=== PATIENT | female | born 1990 | race Caucasian/White ===

== ENCOUNTER 2018-08-03 12:49 | Emergency (ER) | payer OTHER ==
[2018-08-03 14:02] LABS: Urine Bacteria 20-50 /HPF (<20); Urine Culture Reflex Order REFLEXED; Urine Mucus 2+ /HPF (NONE SEEN)
[2018-08-03 14:03] LABS: Urine Blood TRACE (NEG); Urine Glucose NEGATIVE (NEG); Urine Protein NEGATIVE (NEG); Urine pH 7.5 (5.0-7.0)
--- NOTE | 2018-08-03 15:23 | EDPHYS ---
Physician Documentation [facility] Name: Judy Sandoval Age: 27 yrs Sex: Female : 1990 Arrival Date: 08/03/2018 Time: 12:53 Bed 19 Private MD: ED Physician Juan C Tomlinson HPI: 08/03 15:21 This 27 yrs old Female presents to ER via Ambulatory with complaints of kb Abdominal Pain, 12 Weeks . 15:21 The patient presents with abdominal pain right lower quadrant. Onset: The kb symptoms/episode began/occurred yesterday, and became worse this morning. The symptoms do not radiate. Associated signs and symptoms: none. The symptoms are described as constant. Modifying factors: The symptoms are alleviated by nothing, the symptoms are aggravated by pressure. Severity of pain: At its worst the pain was mild moderate in the emergency department the pain is unchanged. The patient has not experienced similar symptoms in the past. The patient has not recently seen a physician. Pt reports 30 pound dog stepped on her stomach last night and she has been having pain. Concerned because she is 12 weeks . 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 - Social history:: Smoking status: Patient/guardian denies using tobacco. - Ebola Screening: : Patient denies travel to an Ebola-affected area in the 21 days before illness onset. ROS: 15:18 Constitutional: Negative for fever, chills, and weight loss, Cardiovascular: Negative kb for chest pain, palpitations, and edema, Respiratory: Negative for shortness of breath, cough, wheezing, and pleuritic chest pain, Back: Negative for injury and pain, MS/Extremity: Negative for injury and deformity, Skin: Negative for injury, rash, and discoloration, Neuro: Negative for headache, weakness, numbness, tingling, and seizure. 15:18 Abdomen/GI: Positive for abdominal pain, Negative for nausea, vomiting, and diarrhea. Exam: 15:18 Constitutional: This is a well developed, well nourished patient who is awake, alert, kb and in no acute distress. Head/Face: Normocephalic, atraumatic. Chest/axilla: Normal chest wall appearance and motion. Nontender with no deformity. No lesions are appreciated. Cardiovascular: Regular rate and rhythm with a normal S1 and S2. No gallops, murmurs, or rubs. Normal PMI, no JVD. No pulse deficits. Respiratory: Lungs have equal breath sounds bilaterally, clear to auscultation and percussion. No rales, rhonchi or wheezes noted. No increased work of breathing, no retractions or nasal flaring. Abdomen/GI: Soft, non-tender, with normal bowel sounds. No distension or tympany. No guarding or rebound. No evidence of tenderness throughout. Back: No spinal tenderness. No costovertebral tenderness. Full range of motion. Skin: Warm, dry with normal turgor. Normal color with no rashes, no lesions, and no evidence of cellulitis. MS/ Extremity: Pulses equal, no cyanosis. Neurovascular intact. Full, normal range of motion. Neuro: Awake and alert, GCS 15, oriented to person, place, time, and situation. Cranial nerves II-XII grossly intact. Motor strength 5/5 in all extremities. Sensory grossly intact. Cerebellar exam normal. Normal gait. Vital Signs: 13:00 BP 140 / 68; Pulse 83; Resp 18; Temp 98.1; Pulse Ox 99% on R/A; Weight 92.53 kg (R); aj1 Height 5 ft. 4 in. (162.56 cm) (R); 13:00 Body Mass Index 35.02 (92.53 kg, 162.56 cm) aj1 MDM: 13:25 Data reviewed: vital signs, nurses notes. Data interpreted: Pulse oximetry: on room air kb is 99 %. Interpretation: normal. 14:25 Patient medically screened. kb 15:18 Counseling: I had a detailed discussion with the patient and/or guardian regarding: the kb historical points, exam findings, and any diagnostic results supporting the discharge/admit diagnosis, lab results, radiology results, the need for outpatient follow up, an OB/Gyne specialist, to return to the emergency department if symptoms worsen or persist or if there are any questions or concerns that arise at home. 08/03 13:14 Order name: Urine Microscopic Only; Complete Time: 14:03 hb 08/03 13:21 Order name: Urine Dipstick--Ancillary (enter results); Complete Time: 14:04 eb 08/03 13:21 Order name: Urine --Ancillary (enter results); Complete Time: 14:04 eb 08/03 14:04 Order name: Urine Culture [facility] 08/03 14:30 Order name: US OB Limited; Complete Time: 15:27 kb Administered Medications: No medications were administered Disposition: 16:09 Co-signature as Attending Physician, Bianka STANFORD I agree with the assessment kdr and plan of care. Disposition: 08/03/18 15:22 Discharged to Home. Impression: 12 weeks gestation of , Generalized abdominal pain, Urinary tract infection, site not specified. - Condition is Stable. - Discharge Instructions: First Trimester of , Pfxp-mx-Vhng, Urinary Tract Infection, Adult, Kyum-pd-Hryo. - Prescriptions for Macrobid 100 mg Oral Capsule - take 1 capsule by ORAL route every 12 hours for 5 days; 10 capsule. - Medication Reconciliation Form, Thank You Letter, Antibiotic Education, Prescription Opioid Use form. - Follow up: Emergency Department; When: As needed; Reason: Worsening of condition. Follow up: Private Physician; When: 2 - 3 days; Reason: Recheck today's complaints, Continuance of care, Re-evaluation by your physician. Signatures: Dispatcher [employer] [facility] Bianka Vu FNP-C FNP-Ckb Johnson, Angela, RN RN aj1 Juan C Tomlinson MD MD [facility] Adelaida Omalley RN RN Corrections: (The following items were deleted from the chart) 15:41 15:22 08/03/2018 15:22 Discharged to Home. Impression: 12 weeks gestation of ; hb Generalized abdominal pain; Urinary tract infection, site not specified. Condition is Stable. Forms are Medication Reconciliation Form, Thank You Letter, Antibiotic Education, Prescription Opioid Use. Follow up: Emergency Department; When: As needed; Reason: Worsening of condition. Follow up: Private Physician; When: 2 - 3 days; Reason: Recheck today's complaints, Continuance of care, Re-evaluation by your physician. kb
--- NOTE | 2018-08-03 15:23 | RAD REPORT ---
EXAM DESCRIPTION: US - OB Limited - 08/03/2018 3:04 pm CLINICAL HISTORY: , trauma to the abdomen COMPARISON: None. FINDINGS: Limited sonography was performed. Exam was requested to confirm heart tones and to evaluate the adjacent adnexa. A single intrauterine gestation is identified. No measurements were obtained to establish stage. Hear t rate was seen at 157 BPM. No intrauterine mass or hematoma. A 2 centimeter right ovarian cyst is pr esent. Left ovary was not identifiable. No blood, fluid or other adnexal abnormality. IMPRESSION: Single intrauterine gestation with a heart rate of 157 BPM. Approximately 2 centimeter right ovarian cyst. No suspicious finding, blood or fluid in either adnexa .
--- NOTE | 2018-08-03 15:23 | ER ---
Nurse's Notes [facility] Name: Judy Sandoval Age: 27 yrs Sex: Female : 1990 Arrival Date: 08/03/2018 Time: 12:53 Bed 19 Private MD: Diagnosis: 12 weeks gestation of ;Generalized abdominal pain;Urinary tract infection, site not specified Presentation: 08/03 12:58 Presenting complaint: Patient states: "Last night around 9:30 my 30 pound dog jumped on aj1 me and stepped on my stomach and now where she stepped on me its hurting" Patient reports that she is currently 12 weeks , denies any vaginal bleeding. Transition of care: patient was not received from another setting of care. Onset of symptoms was August 02, 2018 at 21:30. Risk Assessment: Do you want to hurt yourself or someone else? Patient reports no desire to harm self or others. Initial Sepsis Screen: Does the patient meet any 2 criteria? No. Patient's initial sepsis screen is negative. Does the patient have a suspected source of infection? No. Patient's initial sepsis screen is negative. Care prior to arrival: None. 12:58 Method Of Arrival: Ambulatory aj1 12:58 Acuity: GRZEGORZ 3 aj1 Triage Assessment: 13:00 General: Appears in no apparent distress. uncomfortable, Behavior is calm, cooperative, aj1 appropriate for age. Pain: Complains of pain in right upper quadrant Pain currently is 6 out of 10 on a pain scale. Neuro: Level of Consciousness is awake, alert, obeys commands. Cardiovascular: Patient's skin is warm and dry. Respiratory: Airway is patent Respiratory effort is even, unlabored, Respiratory pattern is regular, symmetrical. GI: Reports upper abdominal pain. : Denies vaginal bleeding. 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 - Social history:: Smoking status: Patient/guardian denies using tobacco. - Ebola Screening: : Patient denies travel to an Ebola-affected area in the 21 days before illness onset. Screenin:00 Abuse screen: Denies threats or abuse. Denies injuries from another. Nutritional hb screening: No deficits noted. Tuberculosis screening: No symptoms or risk factors identified. Fall Risk None identified. Assessment: 15:00 General: Appears in no apparent distress. comfortable, Behavior is calm, cooperative, em Denies fever. Pain: Complains of pain in abdomen Pain currently is 6 out of 10 on a pain scale. Pain began 1 day ago. Neuro: Level of Consciousness is awake, alert, obeys commands, Oriented to person, place, time, situation. Cardiovascular: Patient's skin is warm and dry. Respiratory: Airway is patent Respiratory effort is even, unlabored, Respiratory pattern is regular, symmetrical. GI: Abdomen is flat, Bowel sounds present X 4 quads. Abd is soft and non tender X 4 quads. : Denies urinary frequency, vaginal bleeding. Derm: Skin is intact, is healthy with good turgor, Skin is pink, warm \\T\\ dry. Musculoskeletal: Range of motion: intact in all extremities. 15:15 Reassessment: I agree with previous assessment. hb Vital Signs: 13:00 BP 140 / 68; Pulse 83; Resp 18; Temp 98.1; Pulse Ox 99% on R/A; Weight 92.53 kg (R); aj1 Height 5 ft. 4 in. (162.56 cm) (R); 13:00 Body Mass Index 35.02 (92.53 kg, 162.56 cm) aj1 ED Course: 12:53 Patient arrived in ED. rg4 12:59 Triage completed. aj1 13:00 Arm band placed on Patient placed in waiting room, Patient notified of wait time. aj1 13:23 Bianka Vu FNP-C is PHCP. kb 13:23 Juan C Tomlinson MD is Attending Physician. kb 14:00 Patient has correct armband on for positive identification. Placed in gown. Bed in low hb position. Call light in reach. Side rails up X 1. 14:37 Chetan Edward LVN is Primary Nurse. em 15:04 US OB Limited In Process Unspecified. EDMS 15:30 No provider procedures requiring assistance completed. IV discontinued, intact, hb bleeding controlled, No redness/swelling at site. Pressure dressing applied. Administered Medications: No medications were administered Outcome: 15:22 Discharge ordered by . ori 15:30 Discharged to home ambulatory. hb 15:30 Condition: stable 15:30 Discharge instructions given to patient, Instructed on discharge instructions, follow up and referral plans. medication usage, Demonstrated understanding of instructions, follow-up care, medications, Prescriptions given X 1. 15:41 Patient left the ED. hb Signatures: Dispatcher [employer] EDBianka Barclay, KVNG-C CUT OFF SAW OPERATOR PIPE BLANKS-Luba Sommer RN RN aj1 Chetan Edward, METALLURGICAL ENGINEERING TEACHER METALLURGICAL ENGINEERING TEACHER Adelaida Mora, RN RN Steffany Hernandez rg4
== END 2018-08-03 15:41 | disposition home or self-care (01) ==
LOC: ER 12:49
DX: O23.41 Unspecified infection of urinary tract in pregnancy, first trimester (principal); Z3A.12 12 weeks gestation of pregnancy
CPT/HCPCS: 76815; 81003; 81015; 81025; 87086; 87088; 99283

== ENCOUNTER 2018-10-12 01:20 | Emergency (ER) | payer OTHER ==
--- OUTSIDE RECORDS SUMMARY | 2018-10-12 01:22 | XMS REPORT ---
:1990 [facility] Organization [facility] Address [address] [place] [address] Dr. [place] [address] [place] [id number] Care Team Providers Name Role Phone Unavailable Unavailable Unavailable Problems This patient has no known problems. Allergies, Adverse Reactions, Alerts This patient has no known allergies or adverse reactions. Medications This patient has no known medications.
[2018-10-12] MEDS ORDERED: BUPIVACAINE 0.25% PF 10 ML VIAL ONE (02:34)
--- NOTE | 2018-10-12 03:33 | ER ---
Nurse's Notes [facility] Name: Judy Sandoval Age: 28 yrs Sex: Female : 1990 Arrival Date: 10/12/2018 Time: 01:21 Bed 17 Private MD: Diagnosis: Cracked tooth Presentation: 10/12 01:37 Presenting complaint: Patient states: toothache since 2 days. Transition of care: cc3 patient was not received from another setting of care. Onset of symptoms was October 09, 2018. Risk Assessment: Do you want to hurt yourself or someone else? Patient reports no desire to harm self or others. Initial Sepsis Screen: Does the patient meet any 2 criteria? No. Patient's initial sepsis screen is negative. Does the patient have a suspected source of infection? No. Patient's initial sepsis screen is negative. Care prior to arrival: None. 01:37 Method Of Arrival: Ambulatory cc3 01:37 Acuity: GRZEGORZ 4 cc3 Triage Assessment: 01:37 General: Appears in no apparent distress. uncomfortable, Behavior is calm, cooperative, cc3 appropriate for age. Pain: Complains of pain in tooth. EENT: Reports pain in tooth. Neuro: Level of Consciousness is awake, alert, obeys commands, Oriented to person, place, time, situation, Appropriate for age. Cardiovascular: Patient's skin is warm and dry. Respiratory: Airway is patent Respiratory effort is even, unlabored, Respiratory pattern is regular, symmetrical. GI: Abdomen is round patient 22 weeks . : No signs and/or symptoms were reported regarding the genitourinary system. Derm: No signs and/or symptoms reported regarding the dermatologic system. Musculoskeletal: Circulation, motion, and sensation intact. Range of motion: intact in all extremities. 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 - Social history:: Smoking status: Patient/guardian denies using tobacco, never smoked. - Ebola Screening: : No symptoms or risks identified at this time. Screenin:37 Abuse screen: Denies threats or abuse. Denies injuries from another. Nutritional cc3 screening: No deficits noted. Tuberculosis screening: No symptoms or risk factors identified. Fall Risk Ambulatory Aid- None/Bed Rest/Nurse Assist (0 pts). Gait- Normal/Bed Rest/Wheelchair (0 pts) Mental Status- Oriented to own ability (0 pts). Assessment: 01:37 General: see triage assessment. cc3 02:18 Reassessment: Patient appears in no apparent distress at this time. Patient and/or cc3 family updated on plan of care and expected duration. Pain level reassessed. Patient is alert, oriented x 3, equal unlabored respirations, skin warm/dry/pink. 03:45 Reassessment: Patient appears in no apparent distress at this time. Patient and/or cc3 family updated on plan of care and expected duration. Pain level reassessed. Patient is alert, oriented x 3, equal unlabored respirations, skin warm/dry/pink. Dr. Wagner discharged home the patient, no prescription given. No IV cannula in situ. Patient left ER vitally stable and ambulatory with her mother. Patient denies pain at this time. Patient states feeling better. Patient states symptoms have improved. Vital Signs: 01:37 BP 128 / 68; Pulse 78; Resp 16; Temp 98.3; Pulse Ox 100% ; Weight 98.43 kg; Height 5 ms ft. 4 in. (162.56 cm); Pain 9/10; 02:15 BP 112 / 81; Pulse 80; Resp 17 S; Pulse Ox 99% on R/A; cc3 03:30 BP 121 / 75; Pulse 80; Resp 17 S; Pulse Ox 99% on R/A; cc3 01:37 Body Mass Index 37.25 (98.43 kg, 162.56 cm) ms ED Course: 01:21 Patient arrived in ED. do 01:35 Caroline Coats is Primary Nurse. cc3 01:37 Arm band placed on right wrist. Patient notified of wait time. cc3 01:37 Patient has correct armband on for positive identification. Bed in low position. Call cc3 light in reach. Side rails up X 1. Pulse ox on. NIBP on. 01:55 Triage completed. cc3 02:17 Dante Wagner MD is Attending Physician. tw4 03:45 No provider procedures requiring assistance completed. Patient did not have IV access cc3 during this emergency room visit. Administered Medications: 02:55 Drug: Marcaine (0.25 %) 5 ml {Note: administered by Dr. Wagner.} Route: Infiltration; cc3 Site: affected area; 03:30 Follow up: Response: No adverse reaction; Pain is decreased cc3 Outcome: 03:32 Discharge ordered by . tyler 03:45 Discharged to home ambulatory, with family. cc3 03:45 Condition: stable 03:45 Discharge instructions given to patient, family, Instructed on discharge instructions, follow up and referral plans. Demonstrated understanding of instructions, follow-up care. 03:48 Patient left the ED. cc3 Signatures: Rossi Landry ms Karol, Dante Méndez MD MD tw4 Caroline Coats cc3
--- NOTE | 2018-10-12 03:33 | EDPHYS ---
Physician Documentation [facility] Name: Judy Sandoval Age: 28 yrs Sex: Female : 1990 Arrival Date: 10/12/2018 Time: 01:21 Bed 17 Private MD: ED Physician Dante Wagner HPI: 10/12 05:57 This 28 yrs old Female presents to ER via Ambulatory with complaints of tw4 Toothache - 21 Wks Preg. 05:57 The patient presents with broken tooth/teeth, pain. The problem is located in the upper tw4 left third molar, lower left third molar and lower left second molar. Onset: The symptoms/episode began/occurred today. Duration: The symptoms are continuous, and are unchanged since they started. Associated signs and symptoms: The patient has no apparent associated signs or symptoms. The patient has not experienced similar symptoms in the past. 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 - Social history:: Smoking status: Patient/guardian denies using tobacco, never smoked. - Ebola Screening: : No symptoms or risks identified at this time. ROS: 05:57 Constitutional: Negative for fever, chills, and weight loss, Eyes: Negative for injury, tw4 pain, redness, and discharge. 05:57 ENT: Positive for Teeth pain Exam: 05:57 Constitutional: This is a well developed, well nourished patient who is awake, alert, tw4 and in no acute distress. Head/Face: Normocephalic, atraumatic. 05:57 ENT: Mouth: Dental exam: fractured teeth are noted, specifically the upper left third molar (#16) and lower left second molar (#18). Vital Signs: 01:37 BP 128 / 68; Pulse 78; Resp 16; Temp 98.3; Pulse Ox 100% ; Weight 98.43 kg; Height 5 ms ft. 4 in. (162.56 cm); Pain 9/10; 02:15 BP 112 / 81; Pulse 80; Resp 17 S; Pulse Ox 99% on R/A; cc3 03:30 BP 121 / 75; Pulse 80; Resp 17 S; Pulse Ox 99% on R/A; cc3 01:37 Body Mass Index 37.25 (98.43 kg, 162.56 cm) ms Procedures: 05:57 Nerve block: (dental) of left inferior alveolar nerve, Medication: Marcaine 0.5%, tw4 Amount: 8 mls were injected, Effect: the patient has resolution of the pain, the patient's symptoms are improved, markedly, Performed by Dante Wagner MD Patient tolerated well. MDM: 02:17 Patient medically screened. tw4 05:57 Data reviewed: vital signs, nurses notes. Data interpreted: densitometer reader: rhythm is tw4 normal sinus rhythm, Pulse oximetry:. Counseling: I had a detailed discussion with the patient and/or guardian regarding: the historical points, exam findings, and any diagnostic results supporting the discharge/admit diagnosis. Administered Medications: 02:55 Drug: Marcaine (0.25 %) 5 ml {Note: administered by Dr. Wagner.} Route: Infiltration; cc3 Site: affected area; 03:30 Follow up: Response: No adverse reaction; Pain is decreased cc3 Disposition: 10/12/18 03:32 Discharged to Home. Impression: Cracked tooth. - Condition is Stable. - Discharge Instructions: Dental Pain, Dental Pain, Dmfl-vz-Vlnm. - Medication Reconciliation Form, Thank You Letter, Antibiotic Education, Prescription Opioid Use form. - Follow up: Private Physician; When: Upon discharge from the Emergency Department; Reason: If symptoms return, Recheck today's complaints, Continuance of care. - Problem is new. - Symptoms have improved. Signatures: Dante Wagner MD MD tw4 Caroline Coats cc3 Corrections: (The following items were deleted from the chart) 03:48 03:32 10/12/2018 03:32 Discharged to Home. Impression: Cracked tooth. Condition is cc3 Stable. Forms are Medication Reconciliation Form, Thank You Letter, Antibiotic Education, Prescription Opioid Use. Follow up: Private Physician; When: Upon discharge from the Emergency Department; Reason: If symptoms return, Recheck today's complaints, Continuance of care. Problem is new. Symptoms have improved. tw4
== END 2018-10-12 03:48 | disposition home or self-care (01) ==
LOC: ER 01:20
DX: K03.81 Cracked tooth (principal); Z3A.21 21 weeks gestation of pregnancy
CPT/HCPCS: 99283

== ENCOUNTER 2020-02-12 22:34 | Emergency (ER) | payer OTHER, SELFPAY ==
--- OUTSIDE RECORDS SUMMARY | 2020-02-12 22:37 | XMS REPORT | Continuity of Care Document ---
:1990 Author Organization [facility] t Address [address] [place] [address] Care Team Providers Name Role Phone Evelia Perry Attending Clinician Mary Anne Abreu MD Attending Clinician Mary Anne Abreu MD Admitting Clinician Problems This patient has no known problems. Allergies, Adverse Reactions, Alerts This patient has no known allergies or adverse reactions. Medications This patient has no known medications. Procedures This patient has no known procedures. Encounters Start End Encounter Admission Attending Care Care Encounter Source Date/Time Date/Time Type Type Clinicians Facility Department ID 2019-03-05 2019-03-05 [facility] [id number] 14:20:23 15:04:39 Mildred C WALL TAPER HELPER [id number] Visit [facility]IONAL [id number] MATERNAL [id number] & CHILD 107 [facility] 2019-02-27 2019-02-27 [facility] [id number] 13:54:35 14:20:28 Mildred C WALL TAPER HELPER [id number] Visit [facility] [id number] MATERNAL [id number] & CHILD 107 [facility] 2019-02-08 2019-02-11 [facility] CARMEL Abreu [id number] 06:25:00 16:28:00 Encounter Lelo BONILLA [id number] [facility] [id number] 2019-02-06 2019-02-06 Telephone [facility] [id number] 00:00:00 00:00:00 Mildred C WALL TAPER HELPER [id number] [facility] [id number] MATERNAL [id number] & CHILD 107 [facility] 2019-02-01 2019-02-01 Routine [facility] [id number] 09:53:12 10:41:34 Mildrde C WALL TAPER HELPER [id number] Visit REGIONAL [id number] MATERNAL [id number] & CHILD 107 [facility] 2019-01-25 2019-01-25 Routine [facility] [id number] 09:27:28 10:24:34 Mildred C WALL TAPER HELPER [id number] Visit REGIONAL [id number] MATERNAL [id number] & CHILD 107 [facility] Results This patient has no known results.
--- NOTE | 2020-02-12 23:04 | ER ---
Nurse's Notes [facility] Name: Judy Sandoval Age: 29 yrs Sex: Female : 1990 Arrival Date: 02/12/2020 Time: 22:39 Bed 26 [facility] MD: Diagnosis: ED Course: 02/11 22:39 Patient arrived in ED. es 23:02 Patient's name was called from ER lobby. No response. Unable to locate patient. Will bb disposition as left without being seen by a provider. Administered Medications: No medications were administered Outcome: 23:03 Patient left the ED. bb Signatures: Magdalena Sheikh Brenda RN RN bb
== END 2020-02-12 23:03 | disposition left against medical advice (07) ==
LOC: ER 22:34
DX: Z02.9 Encounter for administrative examinations, unspecified (principal)

== ENCOUNTER 2020-02-14 10:35 | Inpatient (IN) | payer SELFPAY ==
--- OUTSIDE RECORDS SUMMARY | 2020-02-14 10:37 | XMS REPORT | Continuity of Care Document ---
:1990 Author Organization [facility] t Address [address] [place] [address] Care Team Providers Name Role Phone Evelia [...] Clinicians Facility Department ID 2019-03-05 2019-03-05 [email or web address] [id number] 14:20:23 15:04:39 Mildred C SAFETY OFFICER [id number] Visit REGIONAL [id number] MATERNAL [id number] & CHILD 107 [facility] [[email or web address]] 2019-02-27 2019-02-27 [facility] [id number] 13:54:35 14:20:28 Mildred C SAFETY OFFICER [id number] Visit [facility] [id number] MATERNAL [id number] & CHILD 107 [facility] [[email or web address]] 2019-02-08 2019-02-11 [facility] CARMEL Abreu [id number] 06:25:00 16:28:00 Encounter Lelo BONILLA [id number] [facility] [id number] 2019-02-06 2019-02-06 Telephone [facility] [id number] 00:00:00 00:00:00 Mildred C SAFETY OFFICER [id number] [facility] [id number] MATERNAL [id number] & CHILD 107 [facility] [[email or web address]] 2019-02-01 2019-02-01 Routine [facility] [id number] 09:53:12 10:41:34 Mildred C SAFETY OFFICER [id number] Visit REGIONAL [id number] MATERNAL [id number] & CHILD 107 [facility] [[email or web address]] 2019-01-25 2019-01-25 Routine [facility] [id number] 09:27:28 10:24:34 Mildred C SAFETY OFFICER [id number] Visit REGIONAL [id number] MATERNAL [id number] & CHILD 107 [facility] [[email or web address]] Results This patient has no known results.
[2020-02-14] MEDS ORDERED: ONDANSETRON 4 MG/2 ML VIAL ONE (12:10)
[2020-02-14] MEDS ORDERED: MORPHINE 4 MG/ML SYR ONE ×2 (12:10→14:49)
[2020-02-14 12:11] LABS: Absolute Lymphocytes (CBC) 2.5 K/uL (0.7-4.9); Basophils % 0.3 % (0-1.3); Hematocrit 32.8 % (36.0-45.0); Lymphocytes % 17.1 % (15.3-44.8); MPV 8.2 fL (7.6-11.3); RBC Red Blood Cell Count 4.12 M/uL (3.86-4.86)
[2020-02-14] MEDS ORDERED: NA CHLORIDE 0.9% 250 ML ONE (12:12)
[2020-02-14] MEDS ORDERED: VANCOMYCIN 1 GM/VIAL ONE (12:12)
[2020-02-14] MEDS ORDERED: CEFTRIAXONE/SWI 1gm 1 GM/10 ML SYR ONE (12:13)
[2020-02-14 12:20] LABS: BUN Blood Urea Nitrogen 7 mg/dL (7-18); Bicarbonate 24 mmol/L (21-32); Glucose Level 92 mg/dL (74-106); Potassium 3.8 mmol/L (3.5-5.1); Sodium Level 140 mmol/L (136-145)
[2020-02-14] MEDS ORDERED: NA CHLORIDE 0.9% 500 ML ONE (12:26)
--- NOTE | 2020-02-14 13:29 | RAD REPORT ---
EXAM DESCRIPTION: US - Extremity Nonvascular Limited - 02/14/2020 12:58 pm CLINICAL HISTORY: cellulitis/abscess left lateral chest, ant axillary line Left-sided chest swelling COMPARISON: No comparisons TECHNIQUE: Real-time sonographic evaluation of the area of interest was performed. FINDINGS: Tiny 5 x 5 mm subcutaneous slightly complex lesion is present in the area of interest. Kevin t is could be a small lymph node.
--- NOTE | 2020-02-14 14:49 | EDPHYS ---
Physician Documentation [facility] Name: Judy Sandoval Age: 29 yrs Sex: Female : 1990 Arrival Date: 02/14/2020 Time: 11:00 Bed 5 Private MD: ED Physician Juan C Tomlinson HPI: 02/13 14:49 This 29 yrs old Female presents to ER via Ambulatory with complaints of kdr Abscess. 14:49 The patient presents with an abscess of the left lateral posterior chest, The patient kdr presents with cellulitis of the left lateral posterior chest. Description: erythematous, hot, swollen, tense. Onset: The symptoms/episode began/occurred gradually, 7 day(s) ago. Possible cause(s): unknown. Associated signs and symptoms: Pertinent positives: erythema, fever, nausea, Pertinent negatives: discharge, drainage, foreign body sensation, headache, shortness of breath, vomiting. Modifying factors: the symptoms are alleviated by nothing, the symptoms are aggravated by pressure, squeezing the lesion and expressing the contents, touching. Severity of symptoms: At their worst the symptoms were mild, moderate, just prior to arrival, in the emergency department the symptoms are unchanged. The patient has not experienced similar symptoms in the past. The patient has been recently seen by a physician: The patient has been recently seen at an urgent care, 3 days ago. 14:49 The patient has been on abx for three days. 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 - Social history:: Smoking status: Patient denies any tobacco usage or history of. ROS: 14:49 Constitutional: Negative for fever, chills, and weight loss, Eyes: Negative for injury, kdr pain, redness, and discharge, Neck: Negative for injury, pain, and swelling, Cardiovascular: Negative for chest pain, palpitations, and edema, Respiratory: Negative for shortness of breath, cough, wheezing, and pleuritic chest pain, Abdomen/GI: Negative for abdominal pain, nausea, vomiting, diarrhea, and constipation, Back: Negative for injury and pain, : Negative for injury, bleeding, discharge, and swelling, MS/Extremity: Negative for injury and deformity, Neuro: Negative for headache, weakness, numbness, tingling, and seizure activity. Psych: Negative for depression, anxiety, suicide ideation, homicidal ideation, and hallucinations, Allergy/Immunology: Negative for hives, rash, and allergies, Endocrine: Negative for neck swelling, polydipsia, polyuria, polyphagia, and marked weight changes, Hematologic/Lymphatic: Negative for swollen nodes, abnormal bleeding, and unusual bruising. 14:49 Skin: Positive for abscess, cellulitis, erythema, swelling, of the left lateral posterior chest. Exam: 14:49 Constitutional: This is a well developed, well nourished patient who is awake, alert, kdr and in no acute distress. Head/Face: Normocephalic, atraumatic. Eyes: Pupils equal round and reactive to light, extra-ocular motions intact. Lids and lashes normal. Conjunctiva and sclera are non-icteric and not injected. Cornea within normal limits. Periorbital areas with no swelling, redness, or edema. Neck: Trachea midline, no thyromegaly or masses palpated, and no cervical lymphadenopathy. Supple, full range of motion without nuchal rigidity, or vertebral point tenderness. No Meningismus. Cardiovascular: Regular rate and rhythm with a normal S1 and S2. No gallops, murmurs, or rubs. Normal PMI, no JVD. No pulse deficits. Respiratory: Lungs have equal breath sounds bilaterally, clear to auscultation and percussion. No rales, rhonchi or wheezes noted. No increased work of breathing, no retractions or nasal flaring. Abdomen/GI: Soft, non-tender, with normal bowel sounds. No distension or tympany. No guarding or rebound. No evidence of tenderness throughout. Back: No spinal tenderness. No costovertebral tenderness. Full range of motion. Skin: Warm, dry with normal turgor. Normal color with no rashes, no lesions, and no evidence of cellulitis. MS/ Extremity: Pulses equal, no cyanosis. Neurovascular intact. Full, normal range of motion. Neuro: Awake and alert, GCS 15, oriented to person, place, time, and situation. Cranial nerves II-XII grossly intact. Motor strength 5/5 in all extremities. Sensory grossly intact. Cerebellar exam normal. Normal gait. Psych: Awake, alert, with orientation to person, place and time. Behavior, mood, and affect are within normal limits. 14:49 Chest/axilla: Inspection: abscess, that is small, cellulitis, that is mild, Palpation: tenderness, that is mild, Axilla: are normal, Breasts: are normal. Vital Signs: 11:00 BP 121 / 74; Pulse 105; Resp 16; Temp 98.2; Pulse Ox 99% on R/A; Weight 97.52 kg; hb Height 5 ft. 4 in. (162.56 cm); Pain 10/10; 12:16 BP 105 / 67; Pulse 99; Resp 18; Pulse Ox 99% on R/A; Pain 9/10; em 14:13 BP 109 / 60; Pulse 91; Resp 18; Pulse Ox 99% on R/A; Pain 9/10; em 15:11 BP 105 / 75; Pulse 87; Resp 18; Pulse Ox 99% on R/A; em 11:00 Body Mass Index 36.90 (97.52 kg, 162.56 cm) hb MDM: 14:49 Patient medically screened. kdr 14:49 Data reviewed: vital signs, nurses notes, lab test result(s), radiologic studies. kdr Counseling: I had a detailed discussion with the patient and/or guardian regarding: the historical points, exam findings, and any diagnostic results supporting the discharge/admit diagnosis, lab results, radiology results, the need for further work-up and treatment in the hospital. 02/13 11:36 Order name: CBC with Diff kdr 02/13 11:36 Order name: Chem 7 kdr 02/13 11:36 Order name: Blood Culture Adult (2) kdr 02/13 12:02 Order name: Extrmty Nonvasular Limited kdr Administered Medications: 12:12 Drug: Rocephin - (cefTRIAXone) 1 grams Route: IVPB; Infused Over: 30 mins; Site: left hb antecubital; 13:26 Follow up: Response: No adverse reaction; IV Status: Completed infusion; IV Intake: 10mlem 12:13 Drug: vancoMYCIN 1 grams Route: IVPB; Infused Over: 2 hrs; Site: left antecubital; hb 14:30 Follow up: Response: No adverse reaction; IV Status: Completed infusion; IV Intake: em 250ml 12:13 Drug: Zofran (Ondansetron) 4 mg Route: IVP; Site: left antecubital; hb 13:26 Follow up: Response: No adverse reaction; Marked relief of symptoms; Nausea is decreasedem 12:13 Drug: morphine 4 mg Route: IVP; Site: left antecubital; hb 13:26 Follow up: Response: No adverse reaction; Marked relief of symptoms; Pain is decreased em 12:17 Drug: NS 0.9% 500 ml Route: IV; Rate: bolus; Site: left antecubital; em 13:26 Follow up: IV Status: Completed infusion; IV Intake: 500ml em 14:40 Drug: morphine 4 mg Route: IVP; Site: left antecubital; em 16:08 Follow up: Response: No adverse reaction bp Disposition: 02/14/20 14:49 Hospitalization ordered by Rafael Guzman for Observation. Preliminary diagnosis is Cellulitis of chest wall. - Bed requested for Telemetry/MedSurg (observation). - Status is Observation. bp - Condition is Fair. - Problem is an ongoing problem. - Symptoms are unchanged. Signatures: Dispatcher [employer] EDJuan C Brewster MD MD [facility] Chetan Edward, RN RN Adelaida Omalley RN RN Salty Juarez RN RN bp Botello, Elizabeth eb Corrections: (The following items were deleted from the chart) 15: 14:49 Hospitalization Ordered by Rafael Guzman DO for Observation. Preliminary eb diagnosis is Cellulitis of chest wall. Bed requested for Telemetry/MedSurg (observation). Status is Observation. Condition is Fair. Problem is an ongoing problem. Symptoms are unchanged. kdr 16:28 15:26 02/14/2020 14:49 Hospitalization Ordered by Rafael Guzman DO for Observation. bp Preliminary diagnosis is Cellulitis of chest wall. Bed requested for Telemetry/MedSurg (observation). Status is Observation. Condition is Fair. Problem is an ongoing problem. Symptoms are unchanged. eb
--- NOTE | 2020-02-14 14:49 | ER ---
Nurse's Notes [facility] Name: Judy Sandoval Age: 29 yrs Sex: Female : 1990 Arrival Date: 02/14/2020 Time: 11:00 Bed 5 Private MD: Diagnosis: Cellulitis of chest wall Presentation: 02/13 11:00 Chief complaint: Abscess on left breast x 1 week, on clindamycin and Bactrim day 3. hb Reports worsening pain and fever x 2 days. TMAX 103. Coronavirus screen: At this time, the client does not indicate any symptoms associated with coronavirus-19. Ebola Screen: No symptoms or risks identified at this time. Initial Sepsis Screen: Does the patient meet any 2 criteria? HR > 90 bpm. No. Patient's initial sepsis screen is negative. Risk Assessment: Do you want to hurt yourself or someone else? Patient reports no desire to harm self or others. Onset of symptoms was February 07, 2020. 11:00 Method Of Arrival: Ambulatory hb 11:00 Acuity: GRZEGORZ 3 hb 16:07 Initial Sepsis Screen: Does the patient have a suspected source of infection? Yes: Skin bp breakdown/wound. 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 - Social history:: Smoking status: Patient denies any tobacco usage or history of. Screenin:30 Abuse screen: Denies threats or abuse. Nutritional screening: No deficits noted. em Tuberculosis screening: No symptoms or risk factors identified. Fall Risk None identified. Assessment: 11:30 General: Appears in no apparent distress. comfortable, Behavior is calm, cooperative, em appropriate for age, Reports fever for > 3 days, has been taking Bactrim and clindamycin for 2-3 days now, reports fever of 103. Pain: Complains of pain in left lateral anterior chest Pain currently is 10 out of 10 on a pain scale. Neuro: Level of Consciousness is awake, alert, obeys commands, Oriented to person, place, time, situation, Appropriate for age. Cardiovascular: Capillary refill < 3 seconds Patient's skin is warm and dry. Respiratory: Airway is patent Respiratory effort is even, unlabored, Respiratory pattern is regular, symmetrical. GI: Abdomen is round non-distended. Derm: Wound noted left lateral anterior chest. Musculoskeletal: Capillary refill < 3 seconds, Range of motion: intact in all extremities. 12:27 Reassessment: Patient appears in no apparent distress at this time. wheeled to US via em wheelchair. 13:00 Reassessment: Patient appears in no apparent distress at this time. Patient and/or em family updated on plan of care and expected duration. Pain level reassessed. Patient is alert, oriented x 3, equal unlabored respirations, skin warm/dry/pink. Patient states feeling better. 14:01 Reassessment: Dr. Guzman at bedside. em 14:36 Reassessment: reports pain is coming back, rates pain 9/10, provider notified. em 15:11 Reassessment: Patient appears in no apparent distress at this time. Patient and/or em family updated on plan of care and expected duration. Pain level reassessed. Patient is alert, oriented x 3, equal unlabored respirations, skin warm/dry/pink. 16:04 Reassessment: ADMIT COMPLETE, REPORT TO ROSELYN CHRISTY FOR RM 215. bp Vital Signs: 11:00 BP 121 / 74; Pulse 105; Resp 16; Temp 98.2; Pulse Ox 99% on R/A; Weight 97.52 kg; hb Height 5 ft. 4 in. (162.56 cm); Pain 10/10; 12:16 BP 105 / 67; Pulse 99; Resp 18; Pulse Ox 99% on R/A; Pain 9/10; em 14:13 BP 109 / 60; Pulse 91; Resp 18; Pulse Ox 99% on R/A; Pain 9/10; em 15:11 BP 105 / 75; Pulse 87; Resp 18; Pulse Ox 99% on R/A; em 11:00 Body Mass Index 36.90 (97.52 kg, 162.56 cm) hb ED Course: 10:50 Initial lab(s) drawn, by me, sent to lab. Inserted saline lock: 22 gauge in left em antecubital area, using aseptic technique. Blood collected. 11:00 Patient arrived in ED. hb 11:03 Triage completed. hb 11:03 Arm band placed on. hb 11:28 Chetan Edward, RN is Primary Nurse. em 11:30 Patient has correct armband on for positive identification. Placed in gown. Bed in low em position. Call light in reach. Side rails up X2. Pulse ox on. NIBP on. 11:34 Juan C Tomlinson MD is Attending Physician. kdr 12:58 US Extrmty Nonvasular Limited In Process Unspecified. EDMS 14:48 Rafael Guzman DO is Hospitalizing Provider. kdr 16:05 No provider procedures requiring assistance completed. Patient admitted, IV remains in bp place. Administered Medications: 12:12 Drug: Rocephin - (cefTRIAXone) 1 grams Route: IVPB; Infused Over: 30 mins; Site: left hb antecubital; 13:26 Follow up: Response: No adverse reaction; IV Status: Completed infusion; IV Intake: 10mlem 12:13 Drug: vancoMYCIN 1 grams Route: IVPB; Infused Over: 2 hrs; Site: left antecubital; hb 14:30 Follow up: Response: No adverse reaction; IV Status: Completed infusion; IV Intake: em 250ml 12:13 Drug: Zofran (Ondansetron) 4 mg Route: IVP; Site: left antecubital; hb 13:26 Follow up: Response: No adverse reaction; Marked relief of symptoms; Nausea is decreasedem 12:13 Drug: morphine 4 mg Route: IVP; Site: left antecubital; hb 13:26 Follow up: Response: No adverse reaction; Marked relief of symptoms; Pain is decreased em 12:17 Drug: NS 0.9% 500 ml Route: IV; Rate: bolus; Site: left antecubital; em 13:26 Follow up: IV Status: Completed infusion; IV Intake: 500ml em 14:40 Drug: morphine 4 mg Route: IVP; Site: left antecubital; em 16:08 Follow up: Response: No adverse reaction bp Intake: 13:26 IV: 10ml; Total: 10ml. em 13:26 IV: 500ml; Total: 510ml. em 14:30 IV: 250ml; Total: 760ml. em Outcome: 14:49 Decision to Hospitalize by Provider. kdr 16:06 Admitted to Med/surg accompanied by tech, via stretcher, room 204, with chart, Report bp called to ROSELYN CHRISTY 16:06 Condition: stable 16:06 Instructed on the need for admit. 16:28 Patient left the ED. bp Signatures: Dispatcher [employer] EDMS Tomlinson Juan C, MD MD [facility] Chetan Edward, RN RN em Adelaida Omalley, JAELYN RN Salty Carney RN RN bp Corrections: (The following items were deleted from the chart) 11:03 EKG completed in triage. Results shown to . bryce hector : EKG completed in triage. Results shown to MD. em
--- NOTE | 2020-02-14 15:10 | P.HP ---
Certification for Inpatient Patient admitted to: Observation With expected LOS: <2 Midnights Patient will require the following post-hospital care: None Practitioner: I am a practitioner with admitting privileges, knowledge of patient current condition, hospital course, and medical plan of care. Services: Services provided to patient in accordance with Admission requirements found in Title 42 Section 412.3 of the Code of Federal Regulations Patient History Date of Service: 02/14/20 Primary Care Provider: Dr. Cordova([place]) Reason for admission: Failed outpatient cellulitis History of Present Illness: 29-year-old female with history of attention deficit disorder, depression. Patient presented to the emergency room with worsening cellulitis to the left mid axillary area. Patient reported some erythema to the left mid axillary region several days ago. She noted a blister-like area. She also had was feeling very weak. He she felt this was like an infection to the skin. She went to [place] ER for further evaluation. She was given antibiotic therapy and sent home with Bactrim and clindamycin. Her symptoms that improved. She start to have increasing pain and erythema. She came to the ER for further evaluation. In the ER patient was evaluated. White count 14.8, hemoglobin 10.8. Sodium 140, potassium 3.8. GFR unremarkable. Ultrasound to the left mid axillary region shows a tiny 5 x 5 mm subcutaneous complex lesion likely lymph node. Patient given antibiotics in the emergency room. Patient admitted for further evaluation. When I saw the patient ER, she appeared comfortable. Pain well controlled. Allergies No Known Allergies Allergy (Unverified 10/12/18 00:37) Home medications list reviewed: Yes - Past Medical/Surgical History Diabetic: No -: Attention deficit disorder -: depression Past Surgical History: Patient denies surgical history Psychosocial/ Personal History: Patient lives at home. She single - Family History Family History: Reviewed- Non-Contributory - Social History Smoking Status: Light Tobacco smoker (1-9 cigarettes/day) Counseled patient to stop smoking for: less than 10 minutes Smoking therapy provided: Yes Patient receptive to therapy: Yes Alcohol use: Yes CD- Drugs: No Caffeine use: Yes Place of Residence: Home Review of Systems General: Weakness, As per HPI Eyes: Unremarkable ENT: Unremarkable Respiratory: Unremarkable Cardiovascular: Unremarkable Gastrointestinal: Unremarkable Genitourinary: Unremarkable Musculoskeletal: As per HPI Integumentary: As per HPI Neurological: Unremarkable Lymphatics: Unremarkable Physical Examination - Physical Exam General: Alert, In no apparent distress, Oriented x3, Cooperative HEENT: Atraumatic, Normocephalic, Mucous membr. moist/pink Neck: Supple Respiratory: Clear to auscultation bilaterally, Normal air movement Cardiovascular: Normal pulses, Regular rate/rhythm Gastrointestinal: Normal bowel sounds, No tenderness, No masses, No rebound, No guarding Musculoskeletal: Other (Tenderness, erythema to the left mid axillary region. Cellulitis noted to the region. Blister-like area with exudate noted. No fluctuation of scan.) Integumentary: Other (As above) Neurological: Normal speech, Normal strength at 5/5 x4 extr, Normal tone, Normal affect - Studies Laboratory Data (last 24 hrs) 02/14/20 11:55: Sodium 140, Potassium 3.8, BUN 7, Creatinine 0.54 L, Glucose 92 02/14/20 11:55: WBC 14.8 H, Hgb 10.8 L, Hct 32.8 L, Plt Count 359 Assessment and Plan - Plan Impression: Failed outpatient cellulitis of the left mid axillary chest wall region Anemia likely iron deficient Attention deficit disorder depression Plan: Patient will be admitted for further evaluation and treatment. Will obtain blood and wound cultures. Will continue with vancomycin and cefepime. Patient failed outpatient therapy. Will monitor closely. Will provide medication for pain. Will provide DVT prophylaxis. Will continue to monitor and reassess. If condition worsens will consider surgery evaluation. No indication at this time for surgical intervention. Will review and restart home medication. Will monitor closely. Anticipate improvement over the next 24-48 hr. Possible discharge as early as tomorrow. Discharge Plan: Home Plan to discharge in: 24 Hours - Advance Directives Does patient have a Living Will: No Does patient have a Durable POA for Healthcare: No - Code Status/Comfort Care Code Status Assessed: Yes (Patient is full code) Time Spent Managing Pts Care (In Minutes): 55
[2020-02-14] MEDS ORDERED: TRAMADOL HCL 50 MG TAB PO PRN (16:20)
[2020-02-14] MEDS ORDERED: ACETAMINOPHEN 500 MG TAB PO PRN (16:20)
[2020-02-14] MEDS ORDERED: ONDANSETRON 4 MG/2 ML VIAL IV PRN (16:20)
[2020-02-14 16:49] VITALS: BMI 35.9
[2020-02-14] MEDS: NA CHLORIDE 0.9% 1,000 ML IV SCH (17:42)
[2020-02-14] MEDS: ENOXAPARIN 40 MG/0.4 ML SQ SCH (17:42)
[2020-02-14] MEDS: HYDROCODONE/APAP 7.5/325 MG TAB PO PRN (17:57)
[2020-02-14] MEDS ORDERED: VANCOMYCIN 1.75 GM in NA CHLORIDE 0.9% 500 ML IVPB SCH (18:00)
[2020-02-14] MEDS ORDERED: VANCOMYCIN 750 MG in NA CHLORIDE 0.9% 150 ML IVPB ONE (18:00)
[2020-02-14] MEDS: CEFEPIME/SWI 1gm 10 ML IVP SCH (20:28)
[2020-02-14] MEDS ORDERED: CEFEPIME 1 GM/VIAL IV SCH (21:00)
[2020-02-14] MEDS: MUPIROCIN 2% OINT 22GM TUBE TOP SCH (22:23)
[2020-02-15] MEDS: HYDROCODONE/APAP 7.5/325 MG TAB PO PRN ×3 (02:03→17:17)
[2020-02-15] MEDS: VANCOMYCIN 1.75 GM in NA CHLORIDE 0.9% 500 ML IVPB SCH ×2 (05:36→17:17)
[2020-02-15] MEDS: NA CHLORIDE 0.9% 1,000 ML IV SCH ×3 (05:36→22:06)
[2020-02-15 06:16] LABS: Absolute Lymphocytes (CBC) 2.9 K/uL (0.7-4.9); Basophils % 0.2 % (0-1.3); Lymphocytes % 28.7 % (15.3-44.8); MPV 7.9 fL (7.6-11.3); RBC Red Blood Cell Count 3.41 M/uL (3.86-4.86)
[2020-02-15 06:28] LABS: BUN Blood Urea Nitrogen 5 mg/dL (7-18); Bicarbonate 25 mmol/L (21-32); Glucose Level 187 mg/dL (74-106); Potassium 3.4 mmol/L (3.5-5.1); Sodium Level 140 mmol/L (136-145)
[2020-02-15] MEDS: CEFEPIME/SWI 1gm 10 ML IVP SCH ×2 (08:21→20:29)
[2020-02-15] MEDS: MUPIROCIN 2% OINT 22GM TUBE TOP SCH ×2 (08:22→20:28)
[2020-02-15] MEDS ORDERED: POTASSIUM 25 MEQ EFFERV TAB PO ONE (09:00)
--- NOTE | 2020-02-15 09:57 | P.PN ---
Subjective Date of Service: 02/15/20 Primary Care Provider: Dr. Cordova([place]) Chief Complaint: Failed outpatient cellulitis Subjective: Improving Physical Examination - Vital Signs Temperature: 98.0 F Blood Pressure: 155/66 Pulse: 82 Respirations: 16 Pulse Ox (%): 98 - Physical Exam General: Alert HEENT: Atraumatic Neck: Supple Respiratory: Clear to auscultation bilaterally, Normal air movement Cardiovascular: Normal pulses, Regular rate/rhythm Integumentary: Other (Erythema, tenderness and exudate noted to the left chest wall near the mid axillary area.) - Studies Laboratory Data (last 24 hrs) 02/14/20 11:55: Sodium 140, Potassium 3.8, BUN 7, Creatinine 0.54 L, Glucose 92 02/14/20 11:55: WBC 14.8 H, Hgb 10.8 L, Hct 32.8 L, Plt Count 359 Assessment & Plan Discharge Plan: Home Plan to discharge in: 24 Hours Physician Review Additional Text: Impression: Failed outpatient complex abscess/cellulitis of the left mid axillary chest wall region Anemia likely iron deficient Attention deficit disorder depression Plan: Surgery consulted. Surgery evaluated patient. Surgical intervention required. This will occur tomorrow. Continue IV antibiotic therapy. Provide medication for pain. Continue DVT prophylaxis. Anticipate discharge home tomorrow after surgery. Will continue to monitor closely. Time Spent Managing Pts Care (In Minutes): 55
[2020-02-15 10:46] LABS: Specific Gravity 1.015 (1.005-1.030)
[2020-02-15] MEDS: ENOXAPARIN 40 MG/0.4 ML SQ SCH (11:22)
[2020-02-15] MEDS: PARoxetine HCL 10 MG TAB PO SCH (11:24)
[2020-02-15 12:50] LABS: Ferritin 86.7 ng/mL (8-388)
[2020-02-15] MEDS ORDERED: MORPHINE 2 MG/ML SYR IV ONE ×2 (13:00→21:01)
[2020-02-16] MEDS: VANCOMYCIN 1.75 GM in NA CHLORIDE 0.9% 500 ML IVPB SCH (06:35)
[2020-02-16] MEDS: CEFEPIME/SWI 1gm 10 ML IVP SCH (08:05)
[2020-02-16] MEDS: NA CHLORIDE 0.9% 1,000 ML IV SCH (08:20)
[2020-02-16] MEDS: ENOXAPARIN 40 MG/0.4 ML SQ SCH (09:00)
[2020-02-16] MEDS: MUPIROCIN 2% OINT 22GM TUBE TOP SCH (09:00)
[2020-02-16] MEDS: PARoxetine HCL 10 MG TAB PO SCH (09:00)
[2020-02-16] MEDS ORDERED: PAROXETINE HCL 30 MG PO SCH (09:00)
[2020-02-16] MEDS ORDERED: propofoL 200 MG/20 ML VIAL IV ONE (09:50)
[2020-02-16] MEDS ORDERED: BUPIVACA 0.25%/EPI 0.0005%/PF 30 ML VIAL ONE (09:50)
[2020-02-16] MEDS ORDERED: FENTANYL CITR 100 MCG/2 ML ONE ×2 (09:51→10:22)
[2020-02-16] MEDS ORDERED: LIDOCAINE 2% MPF 5 ML VIAL ONE (09:51)
[2020-02-16] MEDS ORDERED: dexAMETHasone 10 MG/ML VIAL ONE (09:53)
[2020-02-16] MEDS ORDERED: KETOROLAC 30 MG/ML INJ ONE (09:53)
[2020-02-16] MEDS ORDERED: ONDANSETRON 4 MG/2 ML VIAL ONE ×2 (09:53→11:01)
--- NOTE | 2020-02-16 10:25 | P.DS ---
Admission Date: 02/14/20 Discharge Date: 02/16/20 Primary Care Provider: Dr. Cordova([place]) Disposition: ROUTINE DISCHARGE Discharge Condition: GOOD Reason for Admission: Failed outpatient cellulitis Consultations: Surgery-Dr. Nair Procedures: US: FINDINGS: Tiny 5 x 5 mm subcutaneous slightly complex lesion is present in the area of interest. That is could be a small lymph node. Surgery: Irrigation and debridement Medical Problem List: Failed outpatient complex abscess/cellulitis of the left mid axillary chest wall region status post irrigation and debridement Anemia of chronic disease with iron/B12 deficiency Attention deficit disorder depression Brief History of Present Illness: 29-year-old female with history of attention deficit disorder, depression. Patient presented to the emergency room with worsening cellulitis to the left mid axillary area. Patient reported some erythema to the left mid axillary region several days ago. She noted a blister-like area. She also had was feeling very weak. He she felt this was like an infection to the skin. She went to [facility] for further evaluation. She was given antibiotic therapy and sent home with Bactrim and clindamycin. Her symptoms that improved. She start to have increasing pain and erythema. She came to the ER for further evaluation. In the ER patient was evaluated. White count 14.8, hemoglobin 10.8. Sodium 140, potassium 3.8. GFR unremarkable. Ultrasound to the left mid axillary region shows a tiny 5 x 5 mm subcutaneous complex lesion likely lymph node. Patient given antibiotics in the emergency room. Patient admitted for further evaluation. When I saw the patient ER, she appeared comfortable. Pain well controlled. Hospital Course: Patient presented with outpatient complex abscess/cellulitis of the left mid axillary chest wall region. Patient given IV antibiotic therapy with improvement. Surgery was consulted. Surgery recommended intervention. I and D was performed. Patient has done well. At discharge patient will continue with current wound care as recommended by surgery. At discharge she may continue with Augmentin 500 mg 1 pill twice daily and doxycycline 100 mg 1 pill twice daily for 7 days. Patient will continue with Bactroban ointment to the nares, umbilicus once daily. Patient may take ibuprofen 400 mg 3 times a day as needed for pain or Tylenol 500 mg 3 times a day as needed for pain. Recommend follow up with surgery in 1 week to follow up this hospitalization. Patient with anemia likely chronic. Patient found to be iron and B12 deficient. Recommend to continue iron and B12 supplementation. Recommend to recheck lab- CBC, iron, B12 in 4 weeks to monitor her progress. Further adjustment in medication can be done by her PCP. Patient with history of attention deficit disorder and depression. At discharge she will continue with her current medication Paxil 30 mg daily. Vital Signs/Physical Exam: Temp Pulse Resp BP Pulse Ox 97.3 F 84 17 130/83 98 02/16/20 08:00 02/16/20 08:00 02/16/20 08:00 02/16/20 08:00 02/16/20 08:00 General: Alert, In no apparent distress, Oriented x3, Cooperative HEENT: Atraumatic Neck: Supple Cardiovascular: Normal pulses Integumentary: Other (Erythema to the chest wall region improved.) Neurological: Normal speech, Normal strength at 5/5 x4 extr, Normal tone, Normal affect Laboratory Data at Discharge: WBC 10.2 K/uL (4.3-10.9) D 02/15/20 06:05 Hgb 9.1 g/dL (12.0-15.0) L 02/15/20 06:05 Hct 27.0 % (36.0-45.0) L D 02/15/20 06:05 Plt Count 317 K/uL (152-406) 02/15/20 06:05 Sodium 140 mmol/L (136-145) 02/15/20 06:05 Potassium 4.3 mmol/L (3.5-5.1) 02/15/20 16:27 BUN 5 mg/dL (7-18) L 02/15/20 06:05 Creatinine 0.64 mg/dL (0.55-1.3) 02/15/20 06:05 Glucose 187 mg/dL (74-106) H 02/15/20 06:05 Home Medications: PARoxetine HCL [Paroxetine HCl] 30 mg PO DAILY 02/14/20 Amoxicillin/Potassium Clav [Augmentin 500-125 Tablet] 1 each PO BID #14 tablet 02/16/20 Cyanocobalamin (Vitamin B-12) [Vitamin B-12] 1,000 mcg PO DAILY #90 tablet 02/16/20 Doxycycline Hyclate 100 mg PO BID #14 tablet 02/16/20 Ferrous Sulfate [Iron] 325 mg PO DAILY #90 tablet 02/16/20 Mupirocin Oint [Bactroban 2% Ointment*] 1 appl TOP DAILY #1 tube 02/16/20 New Medications: Amoxicillin/Potassium Clav [Augmentin 500-125 Tablet] 1 each PO BID #14 tablet Mupirocin Oint [Bactroban 2% Ointment*] 1 appl TOP DAILY #1 tube Doxycycline Hyclate 100 mg PO BID #14 tablet Ferrous Sulfate [Iron] 325 mg PO DAILY #90 tablet Cyanocobalamin (Vitamin B-12) [Vitamin B-12] 1,000 mcg PO DAILY #90 tablet Patient Discharge Instructions: 1. Follow up with PCP in 1 week to follow up this hospitalization. 2. Patient presented with outpatient complex abscess/cellulitis of the left mid axillary chest wall region. Patient given IV antibiotic therapy with improvement. Surgery was consulted. Surgery recommended intervention. I and D was performed. Patient has done well. At discharge patient will continue with current wound care as recommended by surgery. At discharge she may continue with Augmentin 500 mg 1 pill twice daily and doxycycline 100 mg 1 pill twice daily for 7 days. Patient will continue with Bactroban ointment to the nares, umbilicus once daily. Patient may take ibuprofen 400 mg 3 times a day as needed for pain or Tylenol 500 mg 3 times a day as needed for pain. Recommend follow up with surgery in 1 week to follow up this hospitalization. 3. Patient with anemia likely chronic. Patient found to be iron and B12 deficient. Recommend to continue iron and B12 supplementation. Recommend to recheck lab-CBC, iron, B12 in 4 weeks to monitor her progress. Further adjustment in medication can be done by her PCP. 4. Patient with history of attention deficit disorder and depression. At discharge she will continue with her current medication Paxil 30 mg daily. Diet: AHA Activity: Ad jagdish Time spent managing pt's care (in minutes): 55
--- NOTE | 2020-02-16 10:31 | P.OP ---
Plastics Fitter: NONE,NONE Preoperative diagnosis: LEFT axillary abscess Postoperative diagnosis: LEFT axillary abscess Primary procedure: Excisional Debridement of LEFT axillary abscess Anesthesia: GETA + Local Estimated blood loss: <10cc Specimen: cultures and debridement tissue Findings: multiloculated abscess of LEFT axilla [id number] Complications: None Transferred to: Recovery Room Condition: Good
[2020-02-16] MEDS: HYDROMORPHONE HCL 1 MG/ML INJ ONE ×4 (10:52→11:11)
[2020-02-16] MEDS ORDERED: Ringers Lactate 1,000 ML IV ONE (11:07)
[2020-02-16] MEDS ORDERED: HYDROCODONE/APAP 5/325 MG TAB PO PRN (11:08)
[2020-02-16 11:11] VITALS: O2SAT 94
--- NOTE | 2020-02-16 11:40 | CON ---
Date of Consultation: 02/15/2020 Brief History Of Present Illness: Patient is a 29-year-old female with history of ADHD, po stpartum depression, who comes to the ER with worsening cellulitis and tenderness, pain, and drainage of left axillary area. She had some swelling, redness, which initially started on Monday, which got progressively worse. She noted a blister up and started having significant worsening of the redness , cellulitis, stretching in the axillary area and began to weep some purulent fluid as such came to [facility] emergency room with the above-stated complaints. Her constitutional complaints also include weakn ess and fatigue. She had come to the ER with concern for the area and wanted to have it evaluated. Past Medical History: Significant for ADHD, depression. Past Surgical History: She denies. Allergies: NO KNOWN DRUG ALLERGIES. Home Medications: Included paroxetine. Social History: She denies smoking, alcohol, or recreational drug use. Family History: Reviewed, noncontributory. Smoking History: She smokes only intermittently, 1 to 9 cigarettes a day. Review of Systems: Ten-point review of systems other than HPI, denies. Physical Examination: Vital Signs: At the time of examination, her vital signs were temperature of 105/55, pulse is 80, re spiratory rate 14, temperature 97.1. General: She is awake, alert, oriented. PSYCHIATRIC: She is appropriate, conversive. HEENT: She is normocephalic. Sclerae anicteric. Mucous membranes are moist. Oropharynx clear. Neck: Supple. No JVD. Chest: Normal expansion and excursion. Cardiovascular: Regular rate and rhythm. BREASTS: Focused examination of the left axillary area finds a large area of cellulitis approximatel y 6 to 7 cm in size with tenderness to palpation. Some weeping type abscess material appears to be c oming out. There is no other lymphadenopathy appreciable in the area. However, it is difficult to a scertain as there is thickening of the skin in this area. There is no associated breast pathology on the concomitant ipsilateral breast by visual inspection. A formal breast exam was not completed at this time. The remainder of her skin examination is essentially normal. Extremities: No clubbing, cyanosis, edema. Skin: Warm and dry, otherwise. Laboratory Data: White blood cell count of 14.8, hemoglobin is 10.8, hematocrit of 32.8, her platele t count was 359. Her sodium is 140, potassium 4.3, chloride 109, carbon dioxide 25, BUN is 5, creati nine 0.6, glucose was 187. Lactic acid 1.6 on admission. Urine test was negative. She delcid d an extremity ultrasound performed on 02/13 on the day of admission, which was officially read as ti ny 5 x 5 subcutaneous slightly complex lesion present in the area of interest, could be a small lymph node. Assessment And Plan: This is a 29-year-old female who comes in with a left axillary abscess. 1.IV fluid hydration. 2.Antibiotic coverage. 3.I have explained the risks, benefits, alternatives, incision and drainage. Possible additional de bridement of the left axillary area, including but not limited to bleeding, infection, damage to surr ounding tissues, injury, nerves, need for further operation and procedures, ongoing wound care. Maritza ent agrees to proceed as indicated. Thank you for this interesting consult. MENA/STAN Voice ID: [id number] Report ID: [id number]
--- NOTE | 2020-02-16 12:10 | OP ---
Date of Procedure: 02/16/2020 Surgeon: Timothy Nair MD, Preoperative Diagnosis: Left axillary abscess. Postoperative Diagnosis: Left axillary abscess. Procedure Performed: Excisional debridement of left axillary abscess. Anesthesia: General endotracheal plus local with 0.25% Marcaine with epinephrine. Estimated Blood Loss: Less than 10 cc. Specimen: Cultures and debridement tissue. Findings: Multiloculated abscess of the left axilla, size dimensions approximately 10 cm x 6 cm x 4 cm. Complications: None. Disposition: Transferred to recovery room in good condition. Procedure In Detail: After informed consent was obtained, patient was brought to the operating room, prepped and draped in usual sterile fashion. After adequate anesthesia was achieved, I anesthetized the area of elliptical area of skin, which appeared to be obviously necrotic over the area of the le ft axilla consistent with an abscess underlying. After taking this ellipse of skin out, I dissected down and using a combination of sharp dissection as well as electrocautery down to remove an area of infected tissue. Immediately encountered was an abscess. This was cultured for both aerobic and denisha erobic speciation. I then digitized the tract and found it to be quite large and deep with tracking superiorly, inferiorly to a quite large degree, approximately 10 cm x 6 cm x 4 cm depth. After this was completely unroofed, all tissue was debrided, which was infected. The area was copiously irrigat ed multiple times and dried until completely clear. Hemostasis was achieved with electrocautery. Th e area was irrigated once again, packed with Betadine-soaked Kerlix damp to dry and a sterile dressin g placed over top. Patient tolerated the procedure well without evidence of complication, transferre d in good condition. All counts were correct at the end of the case. MENA/MODL Voice ID: [id number] Report ID: [id number]
[2020-02-16 12:29] VITALS: BP 111/59; TEMP 97.5
[2020-02-16] MEDS: HYDROCODONE/APAP 7.5/325 MG TAB PO PRN (14:31)
[2020-02-16] MEDS ORDERED: VANCOMYCIN 2 GM in NA CHLORIDE 0.9% 500 ML IVPB SCH (18:00)
== END 2020-02-16 15:17 | disposition home or self-care (01) | DRG 572 ==
LOC: ER 10:35 → OBSVTOIN 14:53 → ERHOLD 14:53 → 2ND 16:05
PROVIDERS: ADMIT Family Medicine; ATTEND Family Medicine
PROC: 0JBF0ZZ Excision of Left Upper Arm Subcutaneous Tissue and Fascia, Open Approach (ICD-10-PCS; principal; 2020-02-16 09:30)
DX: L03.112 Cellulitis of left axilla (principal); F17.210 Nicotine dependence, cigarettes, uncomplicated; D50.9 Iron deficiency anemia, unspecified; F98.8 Other specified behavioral and emotional disorders with onset usually occurring in childhood and adolescence; F53.0 Postpartum depression; L02.412 Cutaneous abscess of left axilla
CPT/HCPCS: 36415; 76882; 80048; 80202; 81025; 82607; 82728; 83540; 83605; 84132; 84145; 84466; 85025; 87040; 87070; 87075; 87077; 87186; 87205; 88304; 96365; 96375; 99285; J0692; J0696; J1100; J1170; J1650; J2270; J2405; J2704; J3010; J3370; J7030; J7040; J7050; J7120

== ENCOUNTER 2020-02-25 03:52 | Emergency (ER) | payer SELFPAY ==
--- OUTSIDE RECORDS SUMMARY | 2020-02-25 03:54 | XMS REPORT | Continuity of Care Document ---
:1990 Author Organization [facility] t Address [address] [place] [address] Care Team Providers Name Role Phone Evelia [...] Clinicians Facility Department ID 2019-03-05 2019-03-05 [facility] [id number] 14:20:23 15:04:39 Mildred C BREAKER UP [id number] Visit REGIONAL [id number] MATERNAL [id number] & CHILD 107 [facility] 2019-02-27 2019-02-27 [facility] [id number] 13:54:35 14:20:28 Mildred C BREAKER UP [id number] Visit [facility] [id number] MATERNAL [id number] & CHILD 107 [facility] 2019-02-08 2019-02-11 [facility] CARMEL Abreu [id number] 06:25:00 16:28:00 Encounter Lelo BONILLA [id number] [facility] [id number] 2019-02-06 2019-02-06 Telephone [facility] [id number] 00:00:00 00:00:00 Mildred C BREAKER UP [id number] [facility] [id number] MATERNAL [id number] & CHILD 107 [facility] 2019-02-01 2019-02-01 Routine [facility] [id number] 09:53:12 10:41:34 Mildred C BREAKER UP [id number] Visit REGIONAL [id number] MATERNAL [id number] & CHILD 107 [facility] 2019-01-25 2019-01-25 Routine [facility] [id number] 09:27:28 10:24:34 Mildred C BREAKER UP [id number] Visit REGIONAL [id number] MATERNAL [id number] & CHILD 107 [facility] Results This patient has no known results.
[2020-02-25] MEDS ORDERED: KETOROLAC 30 MG/ML INJ ONE (04:35)
--- NOTE | 2020-02-25 05:01 | EDPHYS ---
Physician Documentation [facility] Name: Judy Sandoval Age: 29 yrs Sex: Female : 1990 Arrival Date: 02/25/2020 Time: 03:55 Bed 15 Private MD: ED Physician Dante Wagner HPI: 02/24 05:05 This 29 yrs old Female presents to ER via Ambulatory with complaints of Post tw4 Surgical Complication/pain. 05:05 Patient presents to ED for recheck of: surgical wound. The affected area is on the . tw4 Progress: The patient reports excellent improvement in the affected area. There has been resolution, improvement, or non-development of any drainage, fever, pain, redness or swelling. 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 - Social history:: Smoking status: Patient reports the use of cigarette tobacco products, denies chronic smoking, but will smoke occasionally. ROS: 05:05 Constitutional: Negative for fever, chills, and weight loss, ENT: Negative for injury, tw4 pain, and discharge, Cardiovascular: Negative for chest pain, palpitations, and edema, Respiratory: Negative for shortness of breath, cough, wheezing, and pleuritic chest pain, Abdomen/GI: Negative for abdominal pain, nausea, vomiting, diarrhea, and constipation. 05:05 Skin: Positive for laceration(s), surgical wound left axilla. Exam: 05:10 Constitutional: This is a well developed, well nourished patient who is awake, alert, tw4 and in no acute distress. Head/Face: Normocephalic, atraumatic. Chest/axilla: Normal chest wall appearance and motion. Nontender with no deformity. No lesions are appreciated. Cardiovascular: Regular rate and rhythm with a normal S1 and S2. No gallops, murmurs, or rubs. Normal PMI, no JVD. No pulse deficits. Respiratory: Lungs have equal breath sounds bilaterally, clear to auscultation and percussion. No rales, rhonchi or wheezes noted. No increased work of breathing, no retractions or nasal flaring. 05:10 Skin: Wound recheck: Unrepaired laceration: no drainage, no erythema, no swelling. Vital Signs: 04:11 BP 126 / 74; Pulse 77; Resp 16; Temp 98.3; Pulse Ox 100% ; Pain 10/10; vc 05:00 BP 113 / 98; Pulse 76; Resp 17; Pulse Ox 100% ; vc MDM: 04:00 Patient medically screened. tw4 05:10 Data reviewed: vital signs, nurses notes. Physician consultation: Timothy Nair MD tw4 regarding patient's condition, outpatient follow-up, discussed that pt's wound was healing well and she required more analgesia as outpatient , and will see patient in office. Special discussion: I discussed with the patient/guardian in detail that at this point there is no indication for admission to the hospital. It is understood, however, that if the symptoms persist or worsen the patient needs to return immediately for re-evaluation. 02/24 04:16 Order name: Labs collected and sent; Complete Time: :21 4 Administered Medications: 04:29 Drug: TORadol 60 mg Route: IM; Site: left ventrogluteal; vc 05:33 Follow up: Response: No adverse reaction; Pain is decreased vc Disposition: 02/25/20 05:01 Discharged to Home. Impression: Encounter for change or removal of surgical wound dressing. - Condition is Stable. - Discharge Instructions: How to Change Your Dressing, How to Change Your Dressing, [id number]. - Prescriptions for Tramadol 50 mg Oral Tablet - take 1 tablet by ORAL route every 8 hours as needed; 12 tablet. - Medication Reconciliation Form, Thank You Letter, Antibiotic Education, Prescription Opioid Use form. - Follow up: Private Physician; When: Upon discharge from the Emergency Department; Reason: Recheck today's complaints, Continuance of care, Re-evaluation by your physician. - Problem is new. - Symptoms have improved. Signatures: Dispatcher [employer] Dante Villela MD MD tw4 Yadira Silvestre RN RN vc Corrections: (The following items were deleted from the chart) 04:21 04:16 IV Saline Lock ordered. tw4 vc 05:34 05:01 02/25/2020 05:01 Discharged to Home. Impression: Encounter for change or removal vc of surgical wound dressing. Condition is Stable. Forms are Medication Reconciliation Form, Thank You Letter, Antibiotic Education, Prescription Opioid Use. Follow up: Private Physician; When: Upon discharge from the Emergency Department; Reason: Recheck today's complaints, Continuance of care, Re-evaluation by your physician. Problem is new. Symptoms have improved. tw4
--- NOTE | 2020-02-25 05:01 | ER ---
Nurse's Notes [facility] Name: Judy Sandoval Age: 29 yrs Sex: Female : 1990 Arrival Date: 02/25/2020 Time: 03:55 Bed 15 Private MD: Diagnosis: Encounter for change or removal of surgical wound dressing Presentation: 02/24 04:11 Chief complaint: Patient states: "I had an I\\T\\D done a little over a week ago by Dr. vc Nair, It is hurting really bad, I called his office today but he can't get me in until Monday. They said if it starts hurting worse to come to the ER.". Coronavirus screen: At this time, the client does not indicate any symptoms associated with coronavirus-19. Ebola Screen: No symptoms or risks identified at this time. Initial Sepsis Screen: Does the patient meet any 2 criteria? No. Patient's initial sepsis screen is negative. Does the patient have a suspected source of infection? Yes: Skin breakdown/wound. Risk Assessment: Do you want to hurt yourself or someone else? Patient reports no desire to harm self or others. Onset of symptoms is unknown. 04:11 Method Of Arrival: Ambulatory vc 04:11 Acuity: GRZEGORZ 4 vc Triage Assessment: 04:16 General: Appears in no apparent distress. uncomfortable, Behavior is calm, cooperative, vc appropriate for age. Pain: Complains of pain in left axilla Pain does not radiate. Pain currently is 10 out of 10 on a pain scale. Quality of pain is described as pressure, Pain began gradually. 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 - Social history:: Smoking status: Patient reports the use of cigarette tobacco products, denies chronic smoking, but will smoke occasionally. Screenin:16 Abuse screen: Denies threats or abuse. Nutritional screening: No deficits noted. vc Tuberculosis screening: No symptoms or risk factors identified. Fall Risk None identified. Assessment: 04:21 General: Appears in no apparent distress. uncomfortable, Behavior is calm, cooperative, vc appropriate for age. Pain: Complains of pain in left axilla Pain does not radiate. Pain currently is 10 out of 10 on a pain scale. Neuro: Level of Consciousness is awake, alert, obeys commands, Oriented to person, place, time, situation, Appropriate for age. Cardiovascular: Capillary refill < 3 seconds Patient's skin is warm and dry. Respiratory: Airway is patent Respiratory effort is even, unlabored, Respiratory pattern is regular, symmetrical. GI: No signs and/or symptoms were reported involving the gastrointestinal system. : No signs and/or symptoms were reported regarding the genitourinary system. Derm: Rash noted that is red. 05:32 Reassessment: Patient appears in no apparent distress at this time. Patient and/or vc family updated on plan of care and expected duration. Pain level reassessed. Patient is alert, oriented x 3, equal unlabored respirations, skin warm/dry/pink. Patient states feeling better. Patient states symptoms have improved. Vital Signs: 04:11 BP 126 / 74; Pulse 77; Resp 16; Temp 98.3; Pulse Ox 100% ; Pain 10/10; vc 05:00 BP 113 / 98; Pulse 76; Resp 17; Pulse Ox 100% ; vc ED Course: 03:55 Patient arrived in ED. bp1 04:00 Dante Wagner MD is Attending Physician. tw4 04:11 Yadira Silvestre, JAELYN is Primary Nurse. vc 04:14 Triage completed. vc 04:17 Arm band placed on. vc 04:20 Patient has correct armband on for positive identification. Placed in gown. Bed in low vc position. Call light in reach. Pulse ox on. NIBP on. 05:33 No provider procedures requiring assistance completed. Patient did not have IV access vc during this emergency room visit. Administered Medications: 04:29 Drug: TORadol 60 mg Route: IM; Site: left ventrogluteal; vc 05:33 Follow up: Response: No adverse reaction; Pain is decreased vc Outcome: 05:01 Discharge ordered by . tw4 05:33 Discharged to home ambulatory. vc 05:33 Condition: good 05:33 Discharge instructions given to patient, Instructed on discharge instructions, follow up and referral plans. medication usage, Demonstrated understanding of instructions, follow-up care, medications, Prescriptions given X 1. 05:34 Patient left the ED. vc Signatures: Dante Wagner MD MD tw4 Yadira Silvestre RN RN vc Judy Wright bp1
[2020-02-29 11:41] VITALS: TEMP 98.3; O2SAT 100
[2020-02-29 11:42] VITALS: BP 113/98
== END 2020-02-25 05:34 | disposition home or self-care (01) ==
LOC: ER 03:52
DX: Z48.01 Encounter for change or removal of surgical wound dressing (principal); F17.210 Nicotine dependence, cigarettes, uncomplicated
CPT/HCPCS: 96372; 99283

== ENCOUNTER 2020-08-09 20:15 | Inpatient (IN) | payer BC, SELFPAY ==
--- OUTSIDE RECORDS SUMMARY | 2020-08-09 20:17 | XMS REPORT | Continuity of Care Document ---
:1990 Author Organization [facility] t Address [address] [place] [address] Care Team Providers Name Role Phone Evelia [...] Clinicians Facility Department ID 2019-03-05 2019-03-05 [facility] [id number] 14:20:23 15:04:39 Mildred C EDUCATION COORDINATOR 350.1.13.10 Visit REGIONAL [id number] MATERNAL [id number] & CHILD 107 [facility] 2019-02-27 2019-02-27 [facility] [id number] 13:54:35 14:20:28 Mildred C EDUCATION COORDINATOR 350.1.13.10 Visit [facility] [id number] MATERNAL [id number] & CHILD 107 [facility] 2019-02-08 2019-02-11 [facility] CARMEL Abreu [id number] 06:25:00 16:28:00 Encounter Lelo BONILLA 350.1.13.10 [facility] [id number] 2019-02-06 2019-02-06 [facility] [id number] 00:00:00 00:00:00 Mildred C EDUCATION COORDINATOR 350.1.13.10 [facility] [id number] MATERNAL [id number] & CHILD 107 [facility] 2019-02-01 2019-02-01 Routine [facility] [id number] 09:53:12 10:41:34 Mildred C EDUCATION COORDINATOR 350.1.13.10 Visit REGIONAL [id number] MATERNAL [id number] & CHILD 107 [facility] 2019-01-25 2019-01-25 Routine [facility] [id number] 09:27:28 10:24:34 Mildred C EDUCATION COORDINATOR 350.1.13.10 Visit REGIONAL [id number] MATERNAL [id number] & CHILD 107 [facility] Results This patient has no known results.
[2020-08-09 21:53] LABS: Absolute Lymphocytes (CBC) 2.9 K/uL (0.7-4.9); Basophils % 0.4 % (0-1.3); Hematocrit 35.9 % (36.0-45.0); Lymphocytes % 33.8 % (15.3-44.8); MPV 8.2 fL (7.6-11.3); RBC Red Blood Cell Count 4.48 M/uL (3.86-4.86)
[2020-08-09] MEDS ORDERED: MORPHINE 4 MG/ML SYR ONE (22:10)
[2020-08-09] MEDS ORDERED: ONDANSETRON 4 MG/2 ML VIAL ONE (22:11)
[2020-08-09 22:20] LABS: ALT/SGPT 21 U/L (12-78); AST/SGOT 14 U/L (15-37); Albumin 3.6 g/dL (3.4-5.0); Alkaline Phosphatase 62 U/L (45-117); BUN Blood Urea Nitrogen 10 mg/dL (7-18); Bicarbonate 26 mmol/L (21-32); Bilirubin Total 0.1 mg/dL (0.2-1.0); Glucose Level 76 mg/dL (74-106); Potassium 4.1 mmol/L (3.5-5.1); Protein, Total 7.9 g/dL (6.4-8.2); Sodium Level 137 mmol/L (136-145)
--- NOTE | 2020-08-09 23:48 | EDPHYS ---
Physician Documentation [facility] Name: Judy Sandoval Age: 29 yrs Sex: Female : 1990 Arrival Date: 08/09/2020 Time: 20:18 Bed 17 Private MD: ED Physician Valdez Ya HPI: 08/09 21:19 This 29 yrs old Female presents to ER via Ambulatory with complaints of Wound jmm Infection, Wound Check. 21:19 The patient or guardian complains of pain, that is acute. Onset: The symptoms/episode jmm began/occurred gradually, 3 day(s) ago. Associated signs and symptoms: Pertinent negatives: fever. This is a 29 year old female with no chronic medical conditions that presents to the ED with complaints of swelling to her neck. An abscess was drained 3 days ago and patient prescribed clindamycin with increased swelling today. . 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 - Social history:: Smoking status: Patient denies any tobacco usage or history of. ROS: 21:19 Constitutional: Negative for fever, chills, and weight loss, Cardiovascular: Negative jmm for chest pain, palpitations, and edema, Respiratory: Negative for shortness of breath, cough, wheezing, and pleuritic chest pain. 21:19 Neck: Positive for swelling. 21:19 All other systems are negative. Exam: 21:19 Constitutional: This is a well developed, well nourished patient who is awake, alert, jmm and in no acute distress. Head/Face: atraumatic. Eyes: EOMI, no conjunctival erythema appreciated ENT: Moist Mucus Membranes 21:19 Chest/axilla: Normal chest wall appearance and motion. Cardiovascular: Regular rate and rhythm. No edema appreciated Respiratory: Normal respirations, no respiratory distress appreciated Abdomen/GI: Non distended, soft Back: Normal ROM 21:19 Neck: swelling and induration noted to the right sub mandibular region. 21:19 Skin: swelling and induration noted to the right submandibular region. 21:19 Neuro: Orientation: is normal, Mentation: is normal, Memory: is normal. Vital Signs: 20:40 BP 150 / 97; Pulse 98; Resp 18; Temp 98.2; Pulse Ox 98% on R/A; Weight 98.43 kg; Height ea 5 ft. 4 in. (162.56 cm); 22:45 BP 127 / 60; Pulse 89; Resp 18; Pulse Ox 98% on R/A; mg2 23:26 BP 106 / 58; Pulse 80; Resp 18; Pulse Ox 98% ; ea 20:40 Body Mass Index 37.25 (98.43 kg, 162.56 cm) ea MDM: 21:19 Patient medically screened. [facility] 23:44 Data reviewed: vital signs, nurses notes. Counseling: I had a detailed discussion with [facility] the patient and/or guardian regarding: the historical points, exam findings, and any diagnostic results supporting the discharge/admit diagnosis, lab results, radiology results, the need for further work-up and treatment in the hospital. ED course: I discussed the patient with Raza spears and Dr. Dao. Will admit to Dr. Gulshan menjivar. . 08/09 21:24 Order name: CBC with Diff; Complete Time: 22:06 [facility] 08/09 21:24 Order name: CMP; Complete Time: 22:23 [facility] 08/09 21:24 Order name: Procalcitonin; Complete Time: 23:41 [facility] 08/09 21:24 Order name: Lactate; Complete Time: 22:34 [facility] 08/09 21:24 Order name: Blood Culture Adult (2) [facility] 08/09 21:54 Order name: Urine --Ancillary (enter results); Complete Time: 23:59 tt3 08/09 21:25 Order name: CT Soft Tissue Neck W/contr; Complete Time: 14:15 [facility] 08/09 21:54 Order name: Urine Dipstick--Ancillary (enter results); Complete Time: 23:59 tt3 08/10 00:53 Order name: Wound Culture la1 08/10 01:08 Order name: SARS-COV-2 RT PCR; Complete Time: 06:10 [facility] 08/09 21:24 Order name: Saline Lock; Complete Time: 21:45 [facility] 08/09 21:24 Order name: Urine Dipstick-Ancillary (obtain specimen); Complete Time: 21:51 [facility] 08/09 21:24 Order name: Urine Test (obtain specimen); Complete Time: 21:51 [facility] Administered Medications: 22:02 Drug: morphine 4 mg {Note: rass 0.} Route: IVP; Site: right antecubital; ea 23:47 Follow up: Response: No adverse reaction; Pain is decreased ea 22:02 Drug: Zofran (Ondansetron) 4 mg Route: IVP; Site: right antecubital; ea 23:48 Follow up: Response: No adverse reaction ea 08/10 00:20 Drug: vancoMYCIN 1 grams Route: IVPB; Infused Over: 2 hrs; Site: right antecubital; ea 00:23 Follow up: IV Status: Infusion continued upon admission ea 00:20 Drug: Decadron - Dexamethasone 10 mg Route: IVP; Site: right antecubital; ea 00:23 Follow up: Response: No adverse reaction ea Disposition: 06:10 Co-signature as Attending Physician, Valdez Ya MD. [email or web address] Disposition: 08/09/20 23:47 Hospitalization ordered by Yaw Avelar for Observation. Preliminary diagnosis are Cellulitis of the Neck, Failed Outpatient Therapy. - Bed requested for Telemetry/MedSurg (observation). - Status is Observation. sv - Condition is Stable. - Problem is new. - Symptoms have improved. Signatures: Dispatcher [employer] [facility] Marguerite Callejas Stephanie, Francisco Godoy RN, PA PA [facility] Susi Craig RN RN cg Antunez, Elena, RN RN ea Holmes, Maurice, MD MD [email or web address] Corrections: (The following items were deleted from the chart) 00:09 08/09 23:51 CORONAVIRUS+MR.LAB.BRZ ordered. [facility] 08/10 00:26 08/09 23:47 Hospitalization Ordered by Yaw Avelar MD for Observation. Preliminary cg diagnosis is Cellulitis of the Neck; Failed Outpatient Therapy. Bed requested for Telemetry/MedSurg (observation). Status is Observation. Condition is Stable. Problem is new. Symptoms have improved. [facility] 08/10 12:19 00:26 08/09/2020 23:47 Hospitalization Ordered by Yaw Avelar MD for Observation. Preliminary diagnosis is Cellulitis of the Neck; Failed Outpatient Therapy. Bed requested for [facility] ER HOLD. Status is Observation. Condition is Stable. Problem is new. Symptoms have improved. cg 13:28 12:19 08/09/2020 23:47 Hospitalization Ordered by Yaw Avelar MD for Observation. sv Preliminary diagnosis is Cellulitis of the Neck; Failed Outpatient Therapy. Bed requested for Telemetry/MedSurg (observation). Status is Observation. Condition is Stable. Problem is new. Symptoms have improved. bd
--- NOTE | 2020-08-09 23:48 | ER ---
Nurse's Notes [facility] Name: Judy Sandoval Age: 29 yrs Sex: Female : 1990 Arrival Date: 08/09/2020 Time: 20:18 Bed 17 Private MD: Diagnosis: Cellulitis of the Neck;Failed Outpatient Therapy Presentation: 08/09 20:40 Chief complaint: Patient states: Reports she had an abscess on her right chin drained ea on Monday at her PCPs office, reports today the area has worsened, reports drainage, swelling, warmth and pain to area. Pt reports taking clindamycin prescribed by pcp. Coronavirus screen: At this time, the client does not indicate any symptoms associated with coronavirus-19. Ebola Screen: No symptoms or risks identified at this time. Initial Sepsis Screen: Does the patient meet any 2 criteria? No. Patient's initial sepsis screen is negative. Does the patient have a suspected source of infection? No. Patient's initial sepsis screen is negative. Risk Assessment: Do you want to hurt yourself or someone else? Patient reports no desire to harm self or others. Onset of symptoms was August 09, 2020. 20:40 Method Of Arrival: Ambulatory ea 20:40 Acuity: GRZEGORZ 3 ea Triage Assessment: 20:44 General: Appears uncomfortable, Behavior is appropriate for age. Pain: Complains of ea pain in right cheek and right mandible. Neuro: Level of Consciousness is awake, alert, obeys commands, Oriented to person, place, time, situation. Respiratory: Airway is patent Respiratory effort is even, unlabored, Respiratory pattern is regular, symmetrical. 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 - Social history:: Smoking status: Patient denies any tobacco usage or history of. Screenin:42 Abuse screen: Denies threats or abuse. Nutritional screening: No deficits noted. ea Tuberculosis screening: No symptoms or risk factors identified. Fall Risk None identified. Assessment: 21:44 General: Appears uncomfortable, Behavior is appropriate for age. Pain: Complains of ea pain in right mandible and right cheek. Neuro: Level of Consciousness is awake, alert, obeys commands, Oriented to person, place, time. Respiratory: Airway is patent Respiratory effort is even, unlabored, Respiratory pattern is regular, symmetrical. Derm: Skin is pink, warm \T\ dry. 22:25 Reassessment: Patient and/or family updated on plan of care and expected duration. Pain ea level reassessed. Patient is alert, oriented x 3, equal unlabored respirations, skin warm/dry/pink. 23:26 Reassessment: Patient and/or family updated on plan of care and expected duration. Pain ea level reassessed. Patient is alert, oriented x 3, equal unlabored respirations, skin warm/dry/pink. Hospitalist at bedside updating pt on plan of care. 08/10 00:22 Reassessment: Patient and/or family updated on plan of care and expected duration. Pain ea level reassessed. Patient is alert, oriented x 3, equal unlabored respirations, skin warm/dry/pink. Pt admitted into ED hold. Vital Signs: 08/09 20:40 BP 150 / 97; Pulse 98; Resp 18; Temp 98.2; Pulse Ox 98% on R/A; Weight 98.43 kg; Height ea 5 ft. 4 in. (162.56 cm); 22:45 BP 127 / 60; Pulse 89; Resp 18; Pulse Ox 98% on R/A; mg2 23:26 BP 106 / 58; Pulse 80; Resp 18; Pulse Ox 98% ; ea 20:40 Body Mass Index 37.25 (98.43 kg, 162.56 cm) ea ED Course: 20:18 Patient arrived in ED. bp1 20:29 Francisco Engel PA is PHCP. jmm 20:29 Valdez Ya MD is Attending Physician. jmm 20:42 Triage completed. ea 20:43 Arm band placed on right wrist. ea 21:14 Fanny Son, RN is Primary Nurse. ea 21:43 Patient has correct armband on for positive identification. Bed in low position. Call ea light in reach. Side rails up X 1. Pulse ox on. NIBP on. 21:43 Inserted saline lock: 20 gauge in right antecubital area, using aseptic technique. ea 22:59 CT Soft Tissue Neck W/contr In Process Unspecified. EDMS 23:46 Yaw Avelar MD is Hospitalizing Provider. jm 02/08 00:21 No provider procedures requiring assistance completed. Patient admitted, IV remains in ea place. Administered Medications: 08/09 22:02 Drug: morphine 4 mg {Note: rass 0.} Route: IVP; Site: right antecubital; ea 23:47 Follow up: Response: No adverse reaction; Pain is decreased ea 22:02 Drug: Zofran (Ondansetron) 4 mg Route: IVP; Site: right antecubital; ea 23:48 Follow up: Response: No adverse reaction ea 08/10 00:20 Drug: vancoMYCIN 1 grams Route: IVPB; Infused Over: 2 hrs; Site: right antecubital; ea 00:23 Follow up: IV Status: Infusion continued upon admission ea 00:20 Drug: Decadron - Dexamethasone 10 mg Route: IVP; Site: right antecubital; ea 00:23 Follow up: Response: No adverse reaction ea Outcome: 08/09 23:47 Decision to Hospitalize by Provider. [facility] 08/10 00:22 Admitted to ER Hold. Please see [facility] for further documentation. ea Condition: stable Instructed on the need for admit, Demonstrated understanding of instructions. 13:28 Patient left the ED. sv Signatures: Dispatcher [employer] Maki Hutchison RN RN sv Mickail, Joel, PA PA Fanny Wadr RN RN ea Gardose, Michele, RN RN mg2 [place], Brittany bp1 Corrections: (The following items were deleted from the chart) 08/09 20:43 20:40 Chief complaint: Patient states: Reports she had an abscess on her right chin ea drained on Monday at her PCPs office, reports today the area has worsened, reports drainage, swelling, warmth and pain to area. ea 23:27 23:26 BP 065 / 8; Pulse 80bpm; Resp 18bpm; Pulse Ox 98%; ea ea
[2020-08-09 23:56] LABS: Urine Blood NEGATIVE (NEG); Urine Glucose NEGATIVE (NEG); Urine Protein NEGATIVE (NEG); Urine Specific Gravity 1.025 (1.005-1.030)
[2020-08-10] MEDS ORDERED: dexAMETHasone 10 MG/ML VIAL ONE ×2 (00:15→08:36)
[2020-08-10] MEDS ORDERED: NA CHLORIDE 0.9% 250 ML ONE ×2 (00:16→02:31)
[2020-08-10] MEDS ORDERED: VANCOMYCIN 1 GM/VIAL ONE ×2 (00:16→02:30)
[2020-08-10] MEDS ORDERED: ACETAMINOPHEN 500 MG TAB PO PRN (00:26)
[2020-08-10] MEDS ORDERED: VANCOMYCIN/NS 1 gm 1 GM/250 ML BAG IVPB SCH (00:26)
[2020-08-10] MEDS ORDERED: ONDANSETRON 4 MG/2 ML VIAL IV PRN (00:26)
[2020-08-10] MEDS ORDERED: HYDROCODONE/APAP 5/325 MG TAB ONE ×3 (00:47→12:59)
[2020-08-10] MEDS: HYDROCODONE/APAP 5/325 MG TAB PO PRN ×4 (00:56→21:06)
--- NOTE | 2020-08-10 00:57 | P.HP ---
Certification for Inpatient Patient admitted to: Inpatient With expected LOS: >2 Midnights Patient will require the following post-hospital care: None Practitioner: I am a practitioner with admitting privileges, knowledge of patient current condition, hospital course, and medical plan of care. Services: Services provided to patient in accordance with Admission requirements found in Title 42 Section 412.3 of the Code of Federal Regulations Patient History Date of Service: 08/10/20 Primary Care Provider: Dr. Stover Reason for admission: Submandibular cellulitis History of Present Illness: 29-year-old otherwise healthy female presents emergency department for swelling of the neck. Patient reports that she had an abscess on her anterior neck wall in the submandibular area that was drained percutaneously by her primary care doctor last week. Patient reports that she has been on clindamycin since Monday but the swelling has gotten worse. Labs unremarkable, physical exam significant for approximately golf ball size area of induration in the right submandibular area, CT shows cellulitis of this area without discrete abscess. The sublingual area is without edema, patient able to speak clearly, tolerating secretions, able to tolerate a normal diet just fine, airway patent at this time. Appears to be cellulitis of the skin structures in the area. Case was discussed an with ENT by the ED provider who offered to see the patient tomorrow in the hospital and this was deemed necessary by the hospitalist team, recommend changing antibiotic from clindamycin to vancomycin as this was likely more skin related. Allergies No Known Allergies Allergy (Verified 02/14/20 17:07) Home Medications: PARoxetine HCL [Paroxetine HCl] 30 mg PO DAILY 02/14/20 Amoxicillin/Potassium Clav [Augmentin 500-125 Tablet] 1 each PO BID #14 tablet 02/16/20 Cyanocobalamin (Vitamin B-12) [Vitamin B-12] 1,000 mcg PO DAILY #90 tablet 02/16/20 Doxycycline Hyclate 100 mg PO BID #14 tablet 02/16/20 Ferrous Sulfate [Iron] 325 mg PO DAILY #90 tablet 02/16/20 Mupirocin Oint [Bactroban 2% Ointment*] 1 appl TOP DAILY #1 tube 02/16/20 Sodium Hypochlorite [Dakin's] 473 ml [facility] SEECOM #1 bottle 02/16/20 - Past Medical/Surgical History Diabetic: No -: Attention deficit disorder -: depression -: None Psychosocial/ Personal History: Patient lives at home. She single - Family History Family History: Reviewed- Non-Contributory - Social History Smoking Status: Never smoker Alcohol use: Yes CD- Drugs: No Caffeine use: Yes Place of Residence: Home Review of Systems 10-point ROS is otherwise unremarkable ENT: As per HPI Physical Examination - Physical Exam General: Alert, In no apparent distress, Oriented x3 HEENT: Atraumatic Neck: Supple, Other (Swelling in the right submandibular area approximately golf ball size of indurated tissue present) Respiratory: Clear to auscultation bilaterally, Normal air movement Cardiovascular: No edema, Normal S1 S2 Capillary refill: <2 Seconds Gastrointestinal: Normal bowel sounds, Soft and benign Musculoskeletal: No contractures, No erythema, No tenderness Integumentary: No significant lesion, No tenderness/swelling, No erythema Neurological: Normal speech, Normal strength at 5/5 x4 extr, Normal tone - Studies Laboratory Data (last 24 hrs) 08/09/20 21:34: Sodium 137, Potassium 4.1, BUN 10, Creatinine 0.65, Glucose 76, Total Bilirubin 0.1 L, AST 14 L, ALT 21, Alkaline Phosphatase 62 08/09/20 21:34: WBC 8.50, Hgb 11.7 L, Hct 35.9 L, Plt Count 332 Assessment and Plan - Plan Assessment Cellulitis of the neck (right submandibular area) failed outpatient therapy Plan Cellulitis of the neck (right submandibular area) failed outpatient therapy: Wound culture obtained, continue with broad-spectrum antibiotics cefepime/vancomycin. 3 doses of Decadron q. 8 H. case was discussed with ENT who will be available for consult as necessary. No abscess identified at this time, continue with medical management. Patient airway pain, tolerating full diet able to handle secretions speaking clearly. DVT prophylaxis Lovenox 40 mg subcutaneous once daily. Clinical improvement suspect in the next 48-72 hr. Discharge Plan: Home Plan to discharge in: 72 Hours - Advance Directives Does patient have a Living Will: No Does patient have a Durable POA for Healthcare: No - Code Status/Comfort Care Code Status Assessed: Yes (Full code) Critical Care: No Time Spent Managing Pts Care (In Minutes): 55
[2020-08-10] MEDS: MELATONIN 5 MG TABLET PO PRN ×2 (01:09→21:07)
[2020-08-10 01:12] VITALS: BMI 37.2
[2020-08-10] MEDS ORDERED: MELATONIN 5 MG TABLET PO ONE (01:14)
[2020-08-10] MEDS ORDERED: VANCOMYCIN 750 MG in NA CHLORIDE 0.9% 150 ML IVPB ONE (02:00)
--- NOTE | 2020-08-10 07:16 | P.PN ---
Date of Service: 08/09/20 I was contacted by the ER staff at approximately 2345 regarding this patient. Understanding she had percutaneous I&D with Dr Corodva for superfical abscess and was taking PO Clindamycin with worsening of facial and upper neck/submandibular swelling. The ER stated there was no finding of abscess on her CT and was requesting advice regarding Abx choice. Per the ER staff, the denition was in fair condition and the infection was thought to originate from the skin. I recommended staph/strep coverage with vanco. As no abscess was noted on her CT, I did not see an indication for surgical consult at this time. She will be admitted to the primary team for IV medical therapy. If the area of infection seems to coalesce into an abscess or if the admitting team feels strongly that a surgical consult is required, they are welcome to contact my office in the morning to formally request a consult.
[2020-08-10] MEDS: dexAMETHasone 10 MG/ML VIAL IV SCH ×2 (08:00→16:29)
[2020-08-10] MEDS ORDERED: ENOXAPARIN 40 MG/0.4 ML SQ ONE (08:36)
[2020-08-10] MEDS ORDERED: CEFEPIME/SWI 1gm 10 ML ONE (08:36)
[2020-08-10] MEDS ORDERED: CEFEPIME 1 GM/VIAL IV SCH (09:00)
[2020-08-10] MEDS: CEFEPIME/SWI 1gm 10 ML IV SCH ×2 (09:00→21:07)
[2020-08-10] MEDS: ENOXAPARIN 40 MG/0.4 ML SQ SCH (09:00)
--- NOTE | 2020-08-10 11:27 | RAD REPORT ---
EXAM DESCRIPTION: CT neck with intravenous contrast CLINICAL HISTORY: 29 years Female neck swelling abscess. TECHNIQUE: Axial CT imaging of the soft tissues of the neck were performed following the administrat ion of intravenous contrast. followed by sagittal and coronal reconstructed images. The CT study is p erformed according to ALARA (as low as reasonably achievable) or ALARA/IMAGE GENTLY, with automatic a djustment of mA and/or kV according to patient size. Performed on: 08/09/2020 at 10:40 PM COMPARISON: None. FINDINGS: The visualized portions of the brain and orbits are normal. There is infiltration of the subcutaneous fat in the submental region with mild thickening of the platysma muscle. No discrete so ft tissue mass lesion or fluid collection is identified. No focal abscess is identified. The oral cavity, oropharynx and nasopharynx are normal. Some portions of the oral cavity and orophary nx are obscured by streak artifact related to the patient's dental hardware. The parapharyngeal fa t planes are preserved. The hypopharynx is unremarkable. The epiglottis and aryepiglottic folds are normal. The vallecula and pyriform sinuses are grossly nor mal. The preepiglottic fat is preserved. The thyroid, cricoid and arytenoid cartilages are normal. The region of the false and true vocal cords is normal as is the anterior commissure. The parotid and submandibular glands are grossly within normal limits. No intrinsic mass lesions are seen. . The carotid sheaths are normal bilaterally. The paranasal sinuses and mastoid air cells are clear. No definite pathologically enlarged lymph nodes are identified. There couple of mildly prominent subm ental lymph nodes. The thyroid gland is normal in size and enhances heterogeneously. There are numerous tiny hypodense n odules within the thyroid gland bilaterally. The thoracic inlet is normal. The superior mediastinum and lung apices are normal. No acute osseous abnormalities are identified. IMPRESSION: 1. Cellulitis in the submental region without evidence of a discrete abscess. 2. Numerous tiny hypodense nodules within the thyroid gland bilaterally. No follow-up imaging is ginna mmended. 3. Otherwise, unremarkable CT scan of the soft tissues of the neck. Electronically signed by: Anne-Marie Abarca DO 08/09/2020 11:12 PM PROFESSOR [employer] Due to temporary technical issues with the PACS/Fluency reporting system, reports are being signed by the in house radiologist without review as a courtesy to ensure prompt reporting. The interpreting r adiologist is fully responsible for the content of the report.
[2020-08-10] MEDS: VANCOMYCIN 1.75 GM in NA CHLORIDE 0.9% 500 ML IVPB SCH (15:11)
[2020-08-10] MEDS: HYDROMORPHONE HCL 1 MG/ML INJ IV PRN (16:31)
[2020-08-11] MEDS: VANCOMYCIN 1.75 GM in NA CHLORIDE 0.9% 500 ML IVPB SCH ×2 (02:04→13:55)
[2020-08-11] MEDS: HYDROCODONE/APAP 5/325 MG TAB PO PRN ×4 (05:16→20:39)
[2020-08-11 06:36] LABS: ALT/SGPT 16 U/L (12-78); AST/SGOT 5 U/L (15-37); Albumin 2.9 g/dL (3.4-5.0); Alkaline Phosphatase 54 U/L (45-117); BUN Blood Urea Nitrogen 6 mg/dL (7-18); Bicarbonate 25 mmol/L (21-32); Glucose Level 117 mg/dL (74-106); Potassium 3.9 mmol/L (3.5-5.1); Protein, Total 6.8 g/dL (6.4-8.2); Sodium Level 141 mmol/L (136-145)
[2020-08-11 06:37] LABS: Bilirubin Total < 0.1 mg/dL (0.2-1.0)
[2020-08-11] MEDS ORDERED: POTASSIUM 25 MEQ EFFERV TAB PO ONE (07:05)
[2020-08-11] MEDS: ENOXAPARIN 40 MG/0.4 ML SQ SCH (10:14)
[2020-08-11] MEDS: CEFEPIME/SWI 1gm 10 ML IV SCH (10:14)
[2020-08-11 11:54] LABS: Absolute Lymphocytes (CBC) 4.1 K/uL (0.7-4.9); Basophils % 0.1 % (0-1.3); Hematocrit 35.8 % (36.0-45.0); Lymphocytes % 31.3 % (15.3-44.8); MPV 8.4 fL (7.6-11.3); RBC Red Blood Cell Count 4.41 M/uL (3.86-4.86)
[2020-08-11] MEDS ORDERED: HYDROCORTISONE SUC 100 MG INJ IV ONE (12:56)
--- NOTE | 2020-08-11 14:18 | P.PN ---
Subjective Date of Service: 08/10/20 Subjective: No new changes, No C/O voiced, Improving Review of Systems 10-point ROS is otherwise unremarkable Physical Examination - Vital Signs Temperature: 97.6 F Blood Pressure: 119/63 Pulse: 80 Respirations: 18 Pulse Ox (%): 96 - Physical Exam General: Alert, In no apparent distress, Oriented x3 Neck: Other (Skin is thickened around the submental region. Some erythema and edema) Respiratory: Clear to auscultation bilaterally, Normal air movement Cardiovascular: Regular rate/rhythm, Normal S1 S2 Gastrointestinal: Normal bowel sounds, Soft and benign, Non-distended, No tenderness Musculoskeletal: No tenderness Neurological: Sensation intact, Cranial nerves 3-12 intact - Studies Medications List Reviewed: Yes Assessment & Plan - Problems (Diagnosis) (1) Cellulitis of submandibular region Current Visit: Yes Status: Acute - Plan 1. Continue with IV antibiotic 2. Continue with local wound care 3. ENT consultation if symptoms worsen 4. Gentle IV hydration 5. Monitor CBC 6. May need to repeat CT scan 7. Pain control 8. GI and DVT prophylaxis Discharge Plan: Home Plan to discharge in: Greater than 2 days - Advance Directives Does patient have a Living Will: No Does patient have a Durable POA for Healthcare: No - Code Status/Comfort Care Code Status Assessed: Yes Code Status: Full Code Critical Care: No Time Spent Managing PTS Care (In Minutes): 35
--- NOTE | 2020-08-11 14:19 | P.PN ---
Subjective Date of Service: 08/11/20 Patient is an cellulitis looks to be more formed. It is fairly hard and concerning for it forming into an abscess. I will repeat the CT imaging study and will also give antibiotic coverage to cover anaerobic. Review of Systems 10-point ROS is otherwise unremarkable Physical Examination - Vital Signs Temperature: 97.6 F Blood Pressure: 119/63 Pulse: 80 Respirations: 18 Pulse Ox (%): 96 - Physical Exam General: Alert, In no apparent distress, Oriented x3 Respiratory: Clear to auscultation bilaterally, Normal air movement Cardiovascular: Regular rate/rhythm, Normal S1 S2 Gastrointestinal: Normal bowel sounds, Soft and benign, Non-distended, No tenderness Musculoskeletal: No clubbing, No swelling, No tenderness - Studies Medications List Reviewed: Yes Assessment & Plan - Problems (Diagnosis) (1) Cellulitis of submandibular region Current Visit: Yes Status: Acute - Plan Plan of care as mentioned below 1. Continue with IV antibiotic 2. Continue with local wound care 3. ENT consultation if symptoms worsen 4. Gentle IV hydration 5. Monitor CBC 6. Repeat CT imaging in the morning; if abscess formation then will notify ENT 7. Pain control 8. GI and DVT prophylaxis - Advance Directives Does patient have a Living Will: No Does patient have a Durable POA for Healthcare: No - Code Status/Comfort Care Code Status: Full Code
[2020-08-11] MEDS ORDERED: DIPHENHYDRAMINE 50 MG/ML VIAL IV ONE (15:59)
[2020-08-11] MEDS: AMPICILLIN/SULBACT 3 GM in NA CHLORIDE 0.9% 100 ML IVPB SCH (17:36)
[2020-08-11] MEDS: MELATONIN 5 MG TABLET PO PRN (20:39)
[2020-08-12] MEDS: AMPICILLIN/SULBACT 3 GM in NA CHLORIDE 0.9% 100 ML IVPB SCH ×4 (01:19→18:28)
[2020-08-12] MEDS: VANCOMYCIN 1.75 GM in NA CHLORIDE 0.9% 500 ML IVPB SCH ×2 (02:00→14:54)
[2020-08-12] MEDS: HYDROCODONE/APAP 5/325 MG TAB PO PRN ×4 (02:00→21:16)
[2020-08-12 06:09] LABS: Absolute Lymphocytes (CBC) 5.1 K/uL (0.7-4.9); Basophils % 0.2 % (0-1.3); Hematocrit 32.1 % (36.0-45.0); Lymphocytes % 52.9 % (15.3-44.8)
[2020-08-12 06:28] LABS: ALT/SGPT 18 U/L (12-78); AST/SGOT 7 U/L (15-37); Albumin 2.7 g/dL (3.4-5.0); Alkaline Phosphatase 45 U/L (45-117); BUN Blood Urea Nitrogen 9 mg/dL (7-18); Bicarbonate 26 mmol/L (21-32); Bilirubin Total 0.1 mg/dL (0.2-1.0); Glucose Level 77 mg/dL (74-106); Magnesium 1.9 mg/dL (1.8-2.4); Potassium 4.2 mmol/L (3.5-5.1); Protein, Total 6.3 g/dL (6.4-8.2); Sodium Level 142 mmol/L (136-145)
[2020-08-12] MEDS: PARoxetine HCL 10 MG TAB PO SCH (08:47)
[2020-08-12] MEDS: VYVANSE 50 MG PO SCH (08:49)
[2020-08-12] MEDS: ENOXAPARIN 40 MG/0.4 ML SQ SCH (08:49)
[2020-08-12 09:04] LABS: Blood Morphology Comment NOT SEEN (NOT SEEN); Platelet Estimate ADEQ; White Blood Cell Scan OK (OK)
--- NOTE | 2020-08-12 09:20 | RAD REPORT ---
EXAM DESCRIPTION: CT - Soft Tissue Neck W/Contr - 08/12/2020 8:37 am CLINICAL HISTORY: reevaluate for possible abscess COMPARISON: Soft Tissue Neck W/Contr dated 08/09/2020 TECHNIQUE: During dynamic enhancement using 100 milliliters nonionic IV contrast, axial 5 millimeter thick images of the neck were obtained. All CT scans are performed using dose optimization technique as appropriate and may include automated exposure control or mA/KV adjustment according to patient size. FINDINGS: Intracranial portion the examination is unremarkable. Mastoid air cells and paranasal sinu ses remain clear. The frontal sinuses are not imaged on this soft tissue neck study. No globe or orbi hawa content abnormality. No pharyngeal mucosal mass or soft tissue asymmetry. Parapharyngeal fatty tissues are normal. No tons illar or tongue base mass lesion identifiable. Epiglottis is normal. No vocal cord abnormality seen. The parotid, submandibular and thyroid gland tissue show no suspicious findings. Infectious/inflammatory stranding is present in the submental fatty tissues and there are 2 small 10 millimeter size lymph nodes present that are likely reactive. No abscess is present. No air in the so ft tissues. The extent of the infectious stranding has diminished since August 09. A few small cervi clemente lymph nodes are present. No pathologic lymph nodes seen. IMPRESSION: Partial clearing of the infectious/inflammatory stranding in the submental soft tissues. Small reactive lymph nodes are present fractionally diminished in size. No abscess or other complicating factor.
--- NOTE | 2020-08-12 12:09 | P.PN ---
Date of Service: 08/12/20 In follow up, it was noted that a new CT neck with contrast was performed this morning. On review of the radiologist report and the images, there is partial improvement and no discernable abscess. Please contact me if a surgical assessment is deemed necessary
[2020-08-12] MEDS: MELATONIN 5 MG TABLET PO PRN (21:15)
[2020-08-13] MEDS: AMPICILLIN/SULBACT 3 GM in NA CHLORIDE 0.9% 100 ML IVPB SCH ×3 (00:09→11:26)
[2020-08-13] MEDS: VANCOMYCIN 1.75 GM in NA CHLORIDE 0.9% 500 ML IVPB SCH (02:39)
[2020-08-13] MEDS: HYDROCODONE/APAP 5/325 MG TAB PO PRN ×3 (02:55→17:07)
--- NOTE | 2020-08-13 08:57 | P.PN ---
Date of Service: 08/12/20 Subjective On exam this morning patient is area of induration seems to have become significantly smaller. I did add some steroids for inflammation yesterday. The size of it is significantly reduced. Waiting for CT imaging. Anticipate possible discharge home later today. Review of Systems 10-point ROS is otherwise unremarkable Physical Examination - Vital Signs Reviewed - Physical Exam General: Alert, In no apparent distress, Oriented x3; area of induration decreased in the neck Respiratory: Clear to auscultation bilaterally, Normal air movement Cardiovascular: Regular rate/rhythm, Normal S1 S2 Gastrointestinal: Normal bowel sounds, Soft and benign, Non-distended, No tenderness Musculoskeletal: No clubbing, No swelling, No tenderness - Studies Medications List Reviewed: Yes Assessment & Plan - Problems (Diagnosis) (1) Cellulitis of submandibular region Current Visit: Yes Status: Acute - Plan Plan of care as mentioned below 1. Continue with IV antibiotic 2. Continue IV steroids times 24 more hr as the area of induration decreased significantly since starting it 3. ENT consultation if symptoms worsen 4. Gentle IV hydration 5. Monitor CBC 6. Repeat CT imaging results are pending 7. Pain control 8. GI and DVT prophylaxis - Advance Directives Does patient have a Living Will: No Does patient have a Durable POA for Healthcare: No - Code Status/Comfort Care Code Status: Full Code
[2020-08-13] MEDS: VYVANSE 50 MG PO SCH (09:00)
[2020-08-13] MEDS: ENOXAPARIN 40 MG/0.4 ML SQ SCH (09:08)
[2020-08-13] MEDS: PARoxetine HCL 10 MG TAB PO SCH (09:08)
[2020-08-13] MEDS: VANCOMYCIN 2 GM in NA CHLORIDE 0.9% 500 ML IVPB SCH (13:35)
--- NOTE | 2020-08-13 19:49 | RAD REPORT ---
EXAM DESCRIPTION: RAD - Chest Single View - 08/13/2020 7:35 pm CLINICAL HISTORY: PICC line placement COMPARISON: None. FINDINGS: Portable chest was obtained following placement of a right upper extremity PICC line. The catheter tip is in the mid SVC.
[2020-08-13] MEDS: HYDROMORPHONE HCL 1 MG/ML INJ IV PRN (20:29)
[2020-08-13] MEDS: MELATONIN 5 MG TABLET PO PRN (21:55)
[2020-08-14] MEDS: HYDROCODONE/APAP 5/325 MG TAB PO PRN ×3 (01:08→16:40)
[2020-08-14] MEDS: VANCOMYCIN 2 GM in NA CHLORIDE 0.9% 500 ML IVPB SCH ×2 (01:09→13:40)
[2020-08-14] MEDS: HYDROMORPHONE HCL 1 MG/ML INJ IV PRN (08:22)
[2020-08-14] MEDS: ENOXAPARIN 40 MG/0.4 ML SQ SCH (08:23)
[2020-08-14] MEDS: VYVANSE 50 MG PO SCH (08:23)
[2020-08-14] MEDS: PARoxetine HCL 10 MG TAB PO SCH (08:23)
[2020-08-14] MEDS ORDERED: predniSONE 20 MG TAB PO ONE (09:19)
[2020-08-14 09:43] VITALS: O2SAT 94
[2020-08-14 13:00] VITALS: BP 118/64; TEMP 97.3
[2020-08-15] MEDS ORDERED: VANCOMYCIN 2.25 GM in NA CHLORIDE 0.9% 500 ML IVPB SCH (02:00)
--- NOTE | 2020-09-10 13:31 | P.PN ---
Date of Service: 08/14/20 Subjective Patient continues to improve. Patient denies any new complaints. Will need to arrange for outpatient IV antibiotic therapy Review of Systems 10-point ROS is otherwise unremarkable Physical Examination - Vital Signs Reviewed - Physical Exam General: Alert, In no apparent distress, Oriented x3; area of induration decreased in the neck Respiratory: Clear to auscultation bilaterally, Normal air movement Cardiovascular: Regular rate/rhythm, Normal S1 S2 Gastrointestinal: Normal bowel sounds, Soft and benign, Non-distended, No tenderness Musculoskeletal: No clubbing, No swelling, No tenderness - Studies Medications List Reviewed: Yes Assessment & Plan - Problems (Diagnosis) (1) Cellulitis of submandibular region Current Visit: Yes Status: Acute - Plan Plan of care as mentioned below 1. Continue with IV antibiotic 2. Continue IV steroids; arrange for PICC line and outpatient IV antibiotic therapy. 3. Outpatient ENT follow-up 4. Gentle IV hydration 5. Monitor CBC 6. Repeat CT imaging results are pending 7. Pain control 8. GI and DVT prophylaxis - Advance Directives Does patient have a Living Will: No Does patient have a Durable POA for Healthcare: No - Code Status/Comfort Care Code Status: Full Code
--- NOTE | 2020-09-10 13:35 | P.DS ---
Discharge Date: 08/14/20 Primary Care Provider: Dr. Stover Disposition: ROUTINE DISCHARGE Discharge Condition: GOOD Reason for Admission: Submandibular cellulitis - Problems (1) Cellulitis of submandibular region Status: Acute Brief History of Present Illness: 29-year-old otherwise healthy female presents emergency department for swelling of the neck. Patient reports that she had an abscess on her anterior neck wall in the submandibular area that was drained percutaneously by her primary care doctor last week. Patient reports that she has been on clindamycin since Monday but the swelling has gotten worse. Labs unremarkable, physical exam significant for approximately golf ball size area of induration in the right submandibular area, CT shows cellulitis of this area without discrete abscess. The sublingual area is without edema, patient able to speak clearly, tolerating secretions, able to tolerate a normal diet just fine, airway patent at this time. Appears to be cellulitis of the skin structures in the area. Case was discussed an with ENT by the ED provider who offered to see the patient tomorrow in the hospital and this was deemed necessary by the hospitalist team, recommend changing antibiotic from clindamycin to vancomycin as this was likely more skin related. Hospital Course: Patient grew out MRs day. Arrange for outpatient IV antibiotic therapy as EMR assay was resistant to most oral medications. We did IV antibiotics for a total of 2 weeks. Tapering dose of steroids. At this time, patient is stable for discharge home. Vital Signs/Physical Exam: Temp Pulse Resp BP Pulse Ox 97.3 F 67 16 118/64 97 08/14/20 12:00 08/14/20 12:00 08/14/20 16:40 08/14/20 12:00 08/14/20 16:40 General: Alert, In no apparent distress, Oriented x3 Laboratory Data at Discharge: WBC 9.60 K/uL (4.3-10.9) D 08/12/20 05:54 Hgb 10.8 g/dL (12.0-15.0) L 08/12/20 05:54 Hct 32.1 % (36.0-45.0) L 08/12/20 05:54 Plt Count 303 K/uL (152-406) 08/12/20 05:54 Sodium 142 mmol/L (136-145) 08/12/20 05:54 Potassium 4.2 mmol/L (3.5-5.1) 08/12/20 05:54 BUN 9 mg/dL (7-18) 08/12/20 05:54 Creatinine 0.64 mg/dL (0.55-1.3) 08/14/20 12:59 Glucose 77 mg/dL (74-106) 08/12/20 05:54 Magnesium 1.9 mg/dL (1.8-2.4) 08/12/20 05:54 Total Bilirubin 0.1 mg/dL (0.2-1.0) L 08/12/20 05:54 AST 7 U/L (15-37) L 08/12/20 05:54 ALT 18 U/L (12-78) 08/12/20 05:54 Alkaline Phosphatase 45 U/L (45-117) 08/12/20 05:54 Home Medications: RX: Lisdexamfetamine Dimesylate [Vyvanse] 50 mg PO DAILY 08/10/20 RX: PARoxetine HCl [Paxil] 30 mg PO DAILY 08/10/20 RX: predniSONE [Prednisone*] 20 mg PO BID #9 tab 08/13/20 New Medications: RX: predniSONE [Prednisone*] 20 mg PO BID #9 tab Physician Discharge Instructions: OK TO DC IV AND DC HOME FOLLOW-UP WITH PRIMARY CARE PROVIDER IN 1-2 WEEKS FOLLOW-UP WITH ENT IN 1-2 WEEKS RETURN TO THE ER IF symptoms worsen CALL or TEXT DR. YAO AT [phone] IF ANY QUESTIONS REGARDING HOSPITAL STAY. PLEASE CALL THE FLOOR AT [phone] IF ANY MEDICATION OR NURSING QUESTIONS. Diet: Regular Activity: Fall precautions Followup: Unknown,U [Primary Care Provider] - Time spent managing pt's care (in minutes): 35
== END 2020-08-14 16:51 | disposition home or self-care (01) | DRG 159 ==
LOC: ER 20:15 → ERHOLD 08-10 00:19 → 2ND 08-10 13:21
PROVIDERS: ADMIT Hospitalist; ATTEND Hospitalist
PROC: 02HV33Z Insertion of Infusion Device into Superior Vena Cava, Percutaneous Approach (ICD-10-PCS; principal; 2020-08-13)
DX: K12.2 Cellulitis and abscess of mouth (principal); Z88.5 Allergy status to narcotic agent; Z79.899 Other long term (current) drug therapy; Z20.822 Contact with and (suspected) exposure to COVID-19
CPT/HCPCS: 36415; 36569; 70491; 71045; 80053; 80202; 81003; 81025; 82565; 83605; 83735; 84145; 85025; 87040; 87070; 87075; 87077; 87186; 87205; 96374; 96375; 99285; J0295; J0692; J1100; J1170; J1200; J1650; J1720; J2405; J3370; J7040; J7050; J7512; Q9967; U0003

== ENCOUNTER 2020-11-21 20:46 | Emergency (ER) | payer BC, SELFPAY ==
--- OUTSIDE RECORDS SUMMARY | 2020-11-21 20:48 | XMS REPORT | Continuity of Care Document ---
:1990 Author Organization [facility] t Address [address] [place] [address] Care Team Providers Name Role Phone John Abreu DO Attending Clinician Evelia Perry Attending Clinician Mary Anne Abreu MD Attending Clinician Brady HINES M Admitting Clinician Problems This patient has no known problems. Allergies, Adverse Reactions, Alerts This patient has no known allergies or adverse reactions. Medications This patient has no known medications. Procedures This patient has no known procedures. Encounters Start End Encounter Admission Attending Care Care Encounter Source Date/Time Date/Time Type Type Clinicians Facility Department ID 2020-09-22 2020-09-22 Patient HAZEL Abreu [id number] 00:00:00 00:00:00 Outreach [facility] [id number] John [facility] [id number] [place] [id number] 2019-03-05 2019-03-05 Routine HAZEL Sparrow [id number] 14:20:23 15:04:39 Mildred Altamirano ELECTRICIAN [id number] Visit [facility] [id number] MATERNAL [id number] & CHILD [address] [place] [address] 2019-02-27 2019-02-27 Routine HAZEL Sparrow [id number] 13:54:35 14:20:28 Mildred C ELECTRICIAN [id number] Visit [facility] [id number] MATERNAL [id number] & CHILD [address] [facility] 2019-02-08 2019-02-11 Hospital CARMEL Abreu [id number] 06:25:00 16:28:00 Encounter Lelo BONILLA [address].13.[address] [id number] 2019-02-06 2019-02-06 Telephone [facility], [facility] [id number] 00:00:00 00:00:00 Mildred C ELECTRICIAN [id number] [facility] [id number] MATERNAL [id number] & CHILD [address] [facility] 2019-02-01 2019-02-01 Routine [place], [facility] [id number] 09:53:12 10:41:34 Mildred C ELECTRICIAN [id number] Visit [facility] [id number] MATERNAL [id number] & CHILD [address] [facility] 2019-01-25 2019-01-25 [facility] [id number] 09:27:28 10:24:34 Mildred C ELECTRICIAN [id number] Visit [facility] [id number] MATERNAL [id number] & CHILD [address] [facility] Results This patient has no known results.
[2020-11-21] MEDS ORDERED: LIDOCAINE 2% MPF 5 ML VIAL ONE (22:02)
--- NOTE | 2020-11-21 22:17 | ER ---
Nurse's Notes [facility] Name: Judy Sandoval Age: 30 yrs Sex: Female : 1990 Arrival Date: 11/21/2020 Time: 20:56 Bed 23 Private MD: Diagnosis: Localized swelling, mass and lump, unspecified-mucocele right side lower lip Presentation: 11/21 20:56 Chief complaint: Patient states: About two days ago pt noticed a small 'bump' on the vg1 inside of the lower right side of lip. Coronavirus screen: Client denies travel out of the [place] in the last 14 days. Ebola Screen: Patient negative for fever greater than or equal to 101.5 degrees Fahrenheit, and additional compatible Ebola Virus Disease symptoms. Initial Sepsis Screen: Does the patient meet any 2 criteria? No. Patient's initial sepsis screen is negative. Does the patient have a suspected source of infection? Yes:. Risk Assessment: Do you want to hurt yourself or someone else? Patient reports no desire to harm self or others. Onset of symptoms was November 19, 2020. 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 - Social history:: Smoking status: Patient reports the use of cigarette tobacco products, denies chronic smoking, but will smoke occasionally. Screenin:52 Abuse screen: Denies threats or abuse. Nutritional screening: No deficits noted. bb Tuberculosis screening: No symptoms or risk factors identified. Fall Risk None identified. Assessment: 21:52 General: Appears in no apparent distress. Behavior is calm, cooperative. Pain: bb Complains of pain in right side of lower lip Pain currently is 8 out of 10 on a pain scale. Neuro: Level of Consciousness is awake, alert, obeys commands, Oriented to person, place, time, situation. Cardiovascular: Capillary refill < 3 seconds Patient's skin is warm and dry. Respiratory: Respiratory effort is unlabored, Respiratory pattern is regular. GI: No signs and/or symptoms were reported involving the gastrointestinal system. EENT: edema and three areas of pus to inside of right lateral lower lip. Derm: Skin is pink, warm \T\ dry. Musculoskeletal: Circulation, motion, and sensation intact. 22:41 Reassessment: Patient is alert, oriented x 3, equal unlabored respirations, skin bb warm/dry/pink. pt verbalized understanding of and agrees to plan of care discharge instructions given pt ambulated with steady gait to exit accompanied by friend Patient states symptoms have improved. Vital Signs: 20:56 BP 110 / 88; Pulse 88; Resp 16; Temp 97.5; Pulse Ox 98% ; Weight 92.53 kg; Height 5 ft. vg1 4 in. (162.56 cm); Pain 10/10; 22:42 BP 119 / 61; Pulse 75; Resp 16 S; Pulse Ox 94% on R/A; Pain 6/10; bb 20:56 Body Mass Index 35.02 (92.53 kg, 162.56 cm) vg1 ED Course: 20:56 Patient arrived in ED. cf2 20:58 Triage completed. vg1 20:59 Arm band placed on. vg1 21:04 Leeroy Gipson PA is PHCP. cp 21:04 Valdez Ya MD is Attending Physician. cp 21:51 Gris Cohn RN is Primary Nurse. bb 21:52 Patient has correct armband on for positive identification. Bed in low position. Call bb light in reach. Side rails up X 1. Adult w/ patient. 22:42 Assist provider with I \T\ D: of an abscess on right side lower lip Set up I\T\D tray. bb Performed by Leeroy HOLT Patient tolerated well. 22:42 Patient did not have IV access during this emergency room visit. bb Administered Medications: 22:15 Drug: Lidocaine (2 %) 5 mg {Note: by Leeroy HOLT to affected area.} Route: bb Infiltration; 22:35 Follow up: Response: No adverse reaction bb Outcome: 22:16 Discharge ordered by . cp 22:43 Discharged to home ambulatory, with friend. bb 22:43 Condition: stable 22:43 Discharge instructions given to patient, Instructed on discharge instructions, follow up and referral plans. medication usage, wound care, Demonstrated understanding of instructions, follow-up care, medications, wound care, Prescriptions given X 1. 22:43 Patient left the ED. bb Signatures: Gris Cohn RN RN bb Leeroy Gipson PA PA cp [place], [place] 2 Kia Craig RN RN vg1 Corrections: (The following items were deleted from the chart) 21:04 20:56 Acuity: GRZEGORZ 5 vg1 vg1
--- NOTE | 2020-11-21 22:17 | EDPHYS ---
Physician Documentation [facility] Name: Judy Sandoval Age: 30 yrs Sex: Female : 1990 Arrival Date: 11/21/2020 Time: 20:56 Bed 23 Private MD: ED Physician Valdez Ya HPI: 11/21 22:10 This 30 yrs old Female presents to ER via Ambulatory with complaints of BUMP cp INSIDE LIP. 22:10 The patient presents with pain, swelling. The problem is located in the right side cp inner lower lip. 22:10 Onset: The symptoms/episode began/occurred gradually, and became worse today. Duration: cp The symptoms are continuous. Associated signs and symptoms: Pertinent positives: pain, Pertinent negatives: fever, inability to eat. 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 - Social history:: Smoking status: Patient reports the use of cigarette tobacco products, denies chronic smoking, but will smoke occasionally. ROS: 22:11 Constitutional: Negative for fever. cp 22:11 ENT: Positive for swelling and pain inside lower lip, Negative for ear pain, sore throat, difficulty swallowing, difficulty handling secretions. 22:11 Skin: Negative for rash. 22:11 All other systems are negative. Exam: 22:12 Constitutional: The patient appears in no acute distress, alert, awake, non-toxic, well cp developed, well nourished. 22:12 Head/face: Noted is swelling, that is mild, of the right side lower lip, tenderness, that is mild, of the right side lower lip. 22:12 Eyes: Periorbital structures: appear normal, Conjunctiva: normal, no exudate, no injection, Lids and lashes: appear normal, bilaterally. 22:12 ENT: External ear(s): are unremarkable, Nose: is normal, Mouth: Lips: moist, Oral mucosa: moist, on the right side inner lower lip, swelling, tenderness noted, Posterior pharynx: Airway: no evidence of obstruction, patent, Voice: is normal. 22:12 Neck: ROM/movement: is normal, is supple, without pain, no range of motions limitations. 22:12 Chest/axilla: Inspection: normal. 22:12 Cardiovascular: Rate: normal. 22:12 Respiratory: the patient does not display signs of respiratory distress, Respirations: normal. 22:12 Skin: no rash present. Vital Signs: 20:56 BP 110 / 88; Pulse 88; Resp 16; Temp 97.5; Pulse Ox 98% ; Weight 92.53 kg; Height 5 ft. vg1 4 in. (162.56 cm); Pain 10/10; 22:42 BP 119 / 61; Pulse 75; Resp 16 S; Pulse Ox 94% on R/A; Pain 6/10; bb 20:56 Body Mass Index 35.02 (92.53 kg, 162.56 cm) vg1 MDM: 21:43 Patient medically screened. cp 22:15 Data reviewed: vital signs, nurses notes. cp 22:15 Differential diagnosis: abscess, cellulitis. Counseling: I had a detailed discussion cp with the patient and/or guardian regarding: the historical points, exam findings, and any diagnostic results supporting the discharge/admit diagnosis, to return to the emergency department if symptoms worsen or persist or if there are any questions or concerns that arise at home. Response to treatment: the patient's symptoms have markedly improved after treatment, and as a result, I will discharge patient. 11/21 21:05 Order name: Gloves, Sterile; Complete Time: 21:51 cp 11/21 21:05 Order name: Setup Suture Tray; Complete Time: 21:51 cp Administered Medications: 22:15 Drug: Lidocaine (2 %) 5 mg {Note: by Leeroy HOLT to affected area.} Route: bb Infiltration; 22:35 Follow up: Response: No adverse reaction bb Disposition: 22:20 Chart complete. cp 11/22 07:21 Co-signature as Attending Physician, Valdez Ya MD. [email or web address] Disposition: 11/21/20 22:16 Discharged to Home. Impression: Localized swelling, mass and lump, unspecified - mucocele right side lower lip. - Condition is Stable. - Prescriptions for Clindamycin HCl 300 mg Oral Capsule - take 1 capsule by ORAL route every 6 hours for 7 days; 28 capsule. - Medication Reconciliation Form, Thank You Letter, Antibiotic Education, Prescription Opioid Use form. - Follow up: Private Physician; When: 1 - 2 days; Reason: Worsening of condition. - Problem is new. - Symptoms have improved. Signatures: Gris Cohn RN RN bb Leeroy Gipson PA PA Kia Gale, RN RN vg1 Valdez Ya MD MD [email or web address] Corrections: (The following items were deleted from the chart) 11/21 21:41 21:05 Dressing - Wound ordered. cp bb 22:43 22:16 11/21/2020 22:16 Discharged to Home. Impression: Localized swelling, mass and bb lump, unspecified - mucocele right side lower lip. Condition is Stable. Forms are Medication Reconciliation Form, Thank You Letter, Antibiotic Education, Prescription Opioid Use. Follow up: Private Physician; When: 1 - 2 days; Reason: Worsening of condition. Problem is new. Symptoms have improved. cp
[2020-11-21 23:09] VITALS: TEMP 97.5
[2020-11-21 23:11] VITALS: BP 119/61; O2SAT 94
== END 2020-11-21 22:43 | disposition home or self-care (01) ==
LOC: ER 20:46
DX: K13.79 Other lesions of oral mucosa (principal); F17.210 Nicotine dependence, cigarettes, uncomplicated
CPT/HCPCS: 99283

== ENCOUNTER 2021-02-28 19:34 | Emergency (ER) | payer BC ==
--- OUTSIDE RECORDS SUMMARY | 2021-02-28 19:36 | XMS REPORT | Continuity of Care Document ---
:1990 Author Organization [facility] t Address [address] [place] [address] [address] [place] [address] Care Team Providers Name Role Phone John [...] ID 2020-09-22 2020-09-22 Patient HAZEL Abreu [id number] 00:00:00 00:00:00 Outreach [facility] [id number] John [facility] [id number] PAV[facility]ION [id number] 2019-03-05 2019-03-05 Routine HAZEL Sparrow [id number] 14:20:23 15:04:39 Mildred Altamirano FINISH[employer] 350.1.13.10 Visit [facility] [id number] MATERNAL [id number] & CHILD [address] [place] [address] 2019-02-27 2019-02-27 Routine Kyara [place]ALICE [id number] 13:54:35 14:20:28 Mildred C [employer]ISH[employer] 350.1.13.10 Visit [facility] [id number] MATERNAL [id number] & CHILD 107 [facility] 2019-02-08 2019-02-11 [facility] CARMEL Abreu [id number] 06:25:00 16:28:00 Encounter Lelo BONILLA [address].1.13.[address] [id number] 2019-02-06 2019-02-06 [facility] [id number] 00:00:00 00:00:00 Mildred C [employer] 350.1.13.10 [facility] [id number] MATERNAL [id number] & CHILD 107 [facility] 2019-02-01 2019-02-01 Routine [facility], [facility] [[email or web address]] [id number] 09:53:12 10:41:34 Mildred C [employer] 350.1.13.10 Visit [facility] 4.2.7.2.686 MATERNAL [id number] & CHILD 107 [facility] 2019-01-25 2019-01-25 Routine [facility], [facility] [[email or web address]] [id number] 09:27:28 10:24:34 Mildred C [employer] 350.1.13.10 Visit [facility] [id number] MATERNAL [id number] & CHILD 107 [facility] Results This patient has no known results.
[2021-02-28 22:39] LABS: ALT/SGPT 28 U/L (12-78); AST/SGOT 17 U/L (15-37); Albumin 3.9 g/dL (3.4-5.0); Alkaline Phosphatase 56 U/L (45-117); BUN Blood Urea Nitrogen 8 mg/dL (7-18); Bicarbonate 25 mmol/L (21-32); Bilirubin Total 0.3 mg/dL (0.2-1.0); Glucose Level 85 mg/dL (74-106); Potassium 3.8 mmol/L (3.5-5.1); Protein, Total 7.7 g/dL (6.4-8.2); Sodium Level 139 mmol/L (136-145)
[2021-02-28 22:45] LABS: Absolute Lymphocytes (CBC) 3.3 K/uL (0.7-4.9); Basophils % 0.3 % (0-1.3); Lymphocytes % 42.3 % (15.3-44.8); MPV 8.4 fL (7.6-11.3); RBC Red Blood Cell Count 4.68 M/uL (3.86-4.86)
--- NOTE | 2021-02-28 23:30 | EDPHYS ---
Physician Documentation [facility] Name: Judy Sandoval Age: 30 yrs Sex: Female : 1990 Arrival Date: 02/28/2021 Time: 19:37 Bed 11 Private MD: ED Physician Valdez Ya HPI: 02/28 21:49 This 30 yrs old Female presents to ER via Ambulatory with complaints of pm1 Thinks she has a staph infection on face.. 21:49 The patient's rash thought to be caused by Staph infection. The rash is located on the pm1 neck and right corner of mouth. The rash can be described as crusted, flat, plaque-like. Onset: The symptoms/episode began/occurred 2 week(s) ago. Associated signs and symptoms: Pertinent positives: fever, This morning. Severity of symptoms: in the emergency department the symptoms are unchanged. Treatment given at home: Leftover clindamycin from prior skin infection, patient took for 3 days. The patient has not recently seen a physician. 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 - Social history:: Smoking status: Patient reports the use of cigarette tobacco products, denies chronic smoking, but will smoke occasionally. ROS: 21:49 Eyes: Negative for injury, pain, redness, and discharge, ENT: Negative for injury, pm1 pain, and discharge, Cardiovascular: Negative for chest pain, palpitations, and edema, Respiratory: Negative for shortness of breath, cough, wheezing, and pleuritic chest pain, Abdomen/GI: Negative for abdominal pain, nausea, vomiting, diarrhea, and constipation, Back: Negative for injury and pain, MS/Extremity: Negative for injury and deformity. 21:49 Neuro: Negative for headache, weakness, numbness, tingling, and seizure. 21:49 Constitutional: Positive for fever, Negative for poor PO intake. 21:49 Skin: Positive for rash, of the neck and right corner of mouth. 21:49 All other systems are negative. Exam: 21:49 Constitutional: This is a well developed, well nourished patient who is awake, alert, pm1 and in no acute distress. 21:49 Head/face: Exam is negative for acute changes. 21:49 Eyes: Exam is negative for acute changes, Extraocular movements: no acute changes, Conjunctiva: no acute changes, no injection. 21:49 ENT: Exam is negative for acute changes, Mouth: Lips: Apparent cold sore to right corner of mouth, Posterior pharynx: no acute changes. 21:49 Cardiovascular: Exam negative for acute changes, Rate: normal, Rhythm: regular, Pulses: no pulse deficits are appreciated. 21:49 Respiratory: Exam negative for acute changes, respiratory distress, shortness of breath, Breath sounds: are clear throughout. 21:49 Skin: Appearance: normal except for affected area, rash can be described as Four small 2 to 3 mm ulcerations present to right side of neck. 21:49 Neuro: Exam negative for acute changes, Orientation: is normal, Mentation: is normal, Motor: is normal, moves all fours. Vital Signs: 19:51 BP 129 / 80; Pulse 86; Resp 16; Temp 98.3(O); Pulse Ox 100% ; Weight 92.53 kg; Height 5 vg1 ft. 4 in. (162.56 cm); Pain 9/10; 22:56 BP 119 / 67; Pulse 83; Temp 98.6; Pulse Ox 98% on R/A; dh4 23:43 BP 105 / 66; Pulse 90; Resp 18; Temp 98.9; Pulse Ox 99% on R/A; em 19:51 Body Mass Index 35.02 (92.53 kg, 162.56 cm) vg1 MDM: 21:38 Patient medically screened. pm1 23:23 Data reviewed: vital signs. Data interpreted: Pulse oximetry: on room air is 98 %. pm1 Interpretation: normal. Counseling: I had a detailed discussion with the patient and/or guardian regarding: the historical points, exam findings, and any diagnostic results supporting the discharge/admit diagnosis, lab results, the need for outpatient follow up, to return to the emergency department if symptoms worsen or persist or if there are any questions or concerns that arise at home. 02/28 21:38 Order name: CBC with Diff; Complete Time: 23:18 pm1 02/28 21:38 Order name: CMP; Complete Time: 22:40 pm1 02/28 21:38 Order name: IV Saline Lock; Complete Time: 22:08 pm1 02/28 21:38 Order name: COVID-19 : Document "Date of Symptom Onset" if Symptomatic. pm1 02/28 21:38 Order name: Flu pm1 Administered Medications: 22:42 Drug: Ketorolac 30 mg Route: IVP; Site: left forearm; em 23:55 Follow up: Response: Medication administered at discharge. em Disposition: 03/01 05:14 Co-signature as Attending Physician, Valdez Ya MD. [facility] Disposition Summary: 02/28/21 23:29 Discharge Ordered Location: Home pm1 Problem: new pm1 Symptoms: have improved pm1 Condition: Stable pm1 Diagnosis - Rash and other nonspecific skin eruption pm1 Followup: pm1 - With: Emergency Department - When: As needed - Reason: Worsening of condition Followup: pm1 - With: Private Physician - When: 2 - 3 days - Reason: Recheck today's complaints, Continuance of care, Re-evaluation by your physician Discharge Instructions: - Discharge Summary Sheet pm1 - Rash, Adult pm1 Forms: - Medication Reconciliation Form pm1 - Thank You Letter pm1 - Antibiotic Education pm1 - Prescription Opioid Use pm1 Prescriptions: - cephalexin 500 mg Oral tablet - take 1 tablet by ORAL route every 6 hours for 10 days; 40 tablet; Refills: 0, pm1 Product Selection Permitted - Bactrim DS 800-160 mg Oral Tablet - take 1 tablet by ORAL route every 12 hours for 10 days; 20 tablet; Refills: 0, pm1 Product Selection Permitted Signatures: Dispatcher [employer] Chetan Arechiga RN RN em Jesus Manuel Julian, RAFY CRANE MECHANIC pm1 Kia Craig RN RN 1 Valdez Ya MD MD 7
--- NOTE | 2021-02-28 23:30 | ER ---
Nurse's Notes [facility] Name: Judy Sandoval Age: 30 yrs Sex: Female : 1990 Arrival Date: 02/28/2021 Time: 19:37 Bed 11 Private MD: Diagnosis: Rash and other nonspecific skin eruption Presentation: 02/28 19:51 Chief complaint: Patient states: For about 2 weeks has had a rash on face near mouth vg1 and chin. Stated had left over Clindamycin and stated was taking it to see if the rash would clear up but nothing seems to be working. Stated had a fever since this morning of 100.6 and last time took Tylenol was at noon, also states feel nauseous. Coronavirus screen: Vaccine status: Patient reports receiving the 2nd dose of the covid vaccine. Client denies travel out of the [place] in the last 14 days. Ebola Screen: Patient negative for fever greater than or equal to 101.5 degrees Fahrenheit, and additional compatible Ebola Virus Disease symptoms. Initial Sepsis Screen: Does the patient meet any 2 criteria? No. Patient's initial sepsis screen is negative. Does the patient have a suspected source of infection? No. Patient's initial sepsis screen is negative. Risk Assessment: Do you want to hurt yourself or someone else? Patient reports no desire to harm self or others. Onset of symptoms was February 14, 2021. 19:51 Method Of Arrival: Ambulatory vg1 19:51 Acuity: GRZEGORZ 4 vg1 Triage Assessment: 19:55 General: Appears in no apparent distress. comfortable, Behavior is calm, cooperative. vg1 Pain: Complains of pain in right corner of mouth. 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 - Social history:: Smoking status: Patient reports the use of cigarette tobacco products, denies chronic smoking, but will smoke occasionally. Screenin:30 Abuse screen: Denies threats or abuse. Nutritional screening: No deficits noted. bb Tuberculosis screening: No symptoms or risk factors identified. Fall Risk None identified. Assessment: 21:30 General: Appears in no apparent distress. Behavior is calm, cooperative. Neuro: Level bb of Consciousness is awake, alert, obeys commands, Oriented to person, place, time, situation. Cardiovascular: Heart tones S1 S2 present Capillary refill < 3 seconds Patient's skin is warm and dry. Respiratory: Respiratory effort is even, unlabored, Respiratory pattern is regular. GI: No signs and/or symptoms were reported involving the gastrointestinal system. Derm: Rash noted that is on right corner of mouth. Musculoskeletal: Circulation, motion, and sensation intact. Vital Signs: 19:51 BP 129 / 80; Pulse 86; Resp 16; Temp 98.3(O); Pulse Ox 100% ; Weight 92.53 kg; Height 5 vg1 ft. 4 in. (162.56 cm); Pain 9/10; 22:56 BP 119 / 67; Pulse 83; Temp 98.6; Pulse Ox 98% on R/A; dh4 23:43 BP 105 / 66; Pulse 90; Resp 18; Temp 98.9; Pulse Ox 99% on R/A; em 19:51 Body Mass Index 35.02 (92.53 kg, 162.56 cm) vg1 ED Course: 19:37 Patient arrived in ED. 19:55 Triage completed. vg1 19:55 Arm band placed on Patient placed in waiting room, Patient notified of wait time. vg1 21:15 Jesus Manuel Julian NP is PHCP. pm1 21:15 Valdez Ya MD is Attending Physician. pm1 21:30 Patient has correct armband on for positive identification. Bed in low position. Call bb light in reach. 21:47 Gris Cohn, JAELYN is Primary Nurse. bb 22:08 Inserted saline lock: 22 gauge in left forearm, using aseptic technique. Blood ds4 collected. Missed attempt(s): 22 gauge in right forearm. Bleeding controlled, band aid applied, catheter tip intact. 23:43 No provider procedures requiring assistance completed. IV discontinued, intact, em bleeding controlled, No redness/swelling at site. Pressure dressing applied. Administered Medications: 22:42 Drug: Ketorolac 30 mg Route: IVP; Site: left forearm; em 23:55 Follow up: Response: Medication administered at discharge. em Outcome: 23:29 Discharge ordered by . pm1 23:55 Discharged to home ambulatory. em 23:55 Condition: stable 23:55 Discharge instructions given to patient, Instructed on discharge instructions, follow up and referral plans. medication usage, Demonstrated understanding of instructions, follow-up care, medications, Prescriptions given X 2. 23:55 Patient left the ED. em Signatures: Chetan Edward RN RN Gris Andrew RN RN Ravi Cavanaugh 4 Jesus Manuel Julian, RAFY STORE CLERK pm1 Guanaco Pratt 4 Kia Craig RN RN 1 Orin Pierce
[2021-02-28] MEDS ORDERED: KETOROLAC 30 MG/ML INJ ONE (23:51)
[2021-03-01 00:31] VITALS: BP 105/66; TEMP 98.9; O2SAT 99
== END 2021-02-28 23:55 | disposition home or self-care (01) ==
LOC: ER 19:34
DX: R21 Rash and other nonspecific skin eruption (principal); F32.9 Major depressive disorder, single episode, unspecified; F17.210 Nicotine dependence, cigarettes, uncomplicated; Z88.5 Allergy status to narcotic agent
CPT/HCPCS: 36415; 80053; 85025; 96374; 99284

== ENCOUNTER 2021-05-31 13:47 | Emergency (ER) | payer BC ==
--- OUTSIDE RECORDS SUMMARY | 2021-05-31 13:50 | XMS REPORT | Continuity of Care Document ---
:1990 Author Organization [facility] t Address [address] [place] [address] Dr. [place] [address] [place] [id number] Care Team Providers Name Role Phone IHDE_G Attending Clinician Unavailable IHDE_G Admitting Clinician Unavailable Problems This patient has no known problems. Allergies, Adverse Reactions, Alerts This patient has no known allergies or adverse reactions. Medications This patient has no known medications. Procedures This patient has no known procedures. Encounters Start End Encounter Admission Attending Care Care Encounter Source Date/Time Date/Time Type Type Clinicians Facility Department ID 2021-05-18 Outpatient I[facility]DE[facility]G [facility] [id number] [place] 14:33:25 08[facility] Results This patient has no known results.
[2021-05-31] MEDS ORDERED: ACETAMINOPHEN 500 MG TAB ONE (16:16)
[2021-05-31 16:44] LABS: Absolute Lymphocytes (CBC) 3.3 K/uL (0.7-4.9); Basophils % 0.3 % (0-1.3); Hematocrit 37.1 % (36.0-45.0); Lymphocytes % 35.8 % (15.3-44.8); MPV 7.6 fL (7.6-11.3); RBC Red Blood Cell Count 4.66 M/uL (3.86-4.86)
--- NOTE | 2021-05-31 16:51 | RAD REPORT ---
EXAM DESCRIPTION: CT - Head Brain Wo Cont - 05/31/2021 4:43 pm CLINICAL HISTORY: Dizziness;Syncope Headache, drowsiness COMPARISON: No comparisons TECHNIQUE: All CT scans are performed using dose optimization technique as appropriate and may inclu de automated exposure control or mA/KV adjustment according to patient size. FINDINGS: No intracranial hemorrhage, hydrocephalus or extra-axial fluid collection.No areas of brai n edema or evidence of midline shift. The paranasal sinuses and mastoids are clear. The calvarium is intact. IMPRESSION: No acute intracranial abnormality.
[2021-05-31 17:00] LABS: Protime INR 1.06
[2021-05-31 17:34] LABS: ALT/SGPT 26 U/L (12-78); AST/SGOT 14 U/L (15-37); Albumin 3.8 g/dL (3.4-5.0); Alkaline Phosphatase 63 U/L (45-117); BUN Blood Urea Nitrogen 6 mg/dL (7-18); Bicarbonate 27 mmol/L (21-32); Bilirubin Direct < 0.1 mg/dL (0-0.2); Bilirubin Total 0.2 mg/dL (0.2-1.0); Creatine Phosphokinase 63 U/L (26-192); Glucose Level 87 mg/dL (74-106); Lipase 81 U/L (73-393); Magnesium 2.1 mg/dL (1.8-2.4); Potassium 3.5 mmol/L (3.5-5.1); Protein, Total 8.2 g/dL (6.4-8.2); Sodium Level 138 mmol/L (136-145); Troponin (Emerg Dept Use Only) < 0.02 ng/mL (0.0-0.045)
[2021-05-31 17:43] LABS: CKMB Creatine Kinase MB < 1.0 ng/mL (1.0-3.6)
[2021-05-31] MEDS ORDERED: KETOROLAC 30 MG/ML INJ ONE (17:51)
[2021-05-31] MEDS ORDERED: MECLIZINE HCL 12.5 MG TAB ONE (17:54)
[2021-05-31] MEDS ORDERED: NA CHLORIDE 0.9% 1,000 ML ONE (17:54)
[2021-05-31 18:00] LABS: Urine Blood Trace-intact (Negative); Urine Glucose Negative (Negative); Urine Protein Negative (Negative); Urine Specific Gravity >=1.030 (1.005-1.030)
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
--- NOTE | 2021-05-31 18:06 | EDPHYS ---
Physician Documentation [facility] Name: Judy Sandoval Age: 30 yrs Sex: Female : 1990 Arrival Date: 05/31/2021 Time: 13:53 Bed 9 Private MD: AYAZ Physician Leeroy Moralez HPI: 05/31 18:45 This 30 yrs old Female presents to ER via Ambulatory with complaints of Fainting, kb Nausea/Vomiting. 18:45 The patient has experienced syncope, collapsed. Onset: The symptoms/episode kb began/occurred today. Duration: This was a single episode. Context: the episode(s) was witnessed, by no one. Associated injury: The patient did not suffer any apparent associated injury. Associated signs and symptoms: Pertinent positives: dizziness. Current symptoms: Currently, the patient is not experiencing any symptoms. The patient has not experienced similar symptoms in the past. The patient has not recently seen a physician. Pt reports dizziness for 2 weeks. States she had a syncopal episode when the dizziness started, then again today. . 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 - Social history:: Smoking status: Patient denies any tobacco usage or history of. ROS: 18:32 Constitutional: Negative for fever, chills, and weight loss. kb 18:32 Neuro: Positive for dizziness, syncope. 18:32 All other systems are negative. Exam: 18:30 Constitutional: This is a well developed, well nourished patient who is awake, alert, kb and in no acute distress. Head/Face: Normocephalic, atraumatic. Eyes: Pupils equal round and reactive to light, extra-ocular motions intact. Lids and lashes normal. Conjunctiva and sclera are non-icteric and not injected. Cornea within normal limits. Periorbital areas with no swelling, redness, or edema. ENT: Moist Mucous membranes Cardiovascular: Regular rate and rhythm with a normal S1 and S2. No gallops, murmurs, or rubs. No pulse deficits. Respiratory: Respirations even and unlabored. No increased work of breathing, no retractions or nasal flaring. Abdomen/GI: Soft, non-tender. No distention Skin: Warm, dry with normal turgor. Normal color. MS/ Extremity: Pulses equal, no cyanosis. Neurovascular intact. Full, normal range of motion. Neuro: Awake and alert, GCS 15, oriented to person, place, time, and situation. Moves all extremities. Normal gait. Psych: Awake, alert, with orientation to person, place and time. Behavior, mood, and affect are within normal limits. 18:30 ECG was reviewed by the Attending Physician. Vital Signs: 14:35 BP 126 / 76; Pulse 90; Resp 15; Temp 97.3(TE); Pulse Ox 99% on R/A; Weight 95.25 kg; ss Height 5 ft. 4 in. (162.56 cm); Pain 8/10; 16:02 BP 123 / 68; Pulse 91; Resp 18; Pulse Ox 100% on R/A; mh5 18:07 BP 119 / 86; Pulse 75; Resp 16; Pulse Ox 98% ; iw 14:35 Body Mass Index 36.05 (95.25 kg, 162.56 cm) ss MDM: 15:57 Patient medically screened. kb 18:30 Data reviewed: vital signs, nurses notes. Data interpreted: Pulse oximetry: on room air kb is 98 %. Interpretation: normal. Counseling: I had a detailed discussion with the patient and/or guardian regarding: the historical points, exam findings, and any diagnostic results supporting the discharge/admit diagnosis, lab results, radiology results, the need for outpatient follow up, a family practitioner. 05/31 16:05 Order name: Basic Metabolic Panel; Complete Time: 17:45 kb 05/31 16:05 Order name: CBC with Diff; Complete Time: 17:06 kb 05/31 16:05 Order name: CPK; Complete Time: 17:45 kb 05/31 16:05 Order name: Ckmb; Complete Time: 17:45 kb 05/31 16:05 Order name: Hepatic Function; Complete Time: 17:45 kb 05/31 16:05 Order name: Lipase; Complete Time: 17:45 kb 05/31 16:05 Order name: Magnesium; Complete Time: 17:45 kb 05/31 16:05 Order name: Protime (+inr); Complete Time: 17:06 kb 05/31 16:05 Order name: Ptt, Activated; Complete Time: 17:06 kb 05/31 16:05 Order name: Troponin (emerg Dept Use Only); Complete Time: 17:45 kb 05/31 16:05 Order name: CT Head Brain wo Cont; Complete Time: 16:52 kb 05/31 18:00 Order name: Urine Dipstick-Ancillary; Complete Time: 18:02 EDMS 05/31 18:02 Order name: Urine --Ancillary (enter results); Complete Time: 18:54 bd 05/31 16:05 Order name: EKG; Complete Time: 16:06 kb 05/31 16:05 Order name: Cardiac monitoring; Complete Time: 16:38 kb 05/31 16:05 Order name: EKG - Nurse/Tech; Complete Time: 16:38 kb 05/31 16:05 Order name: IV Saline Lock; Complete Time: 16:38 kb 05/31 16:05 Order name: Labs collected and sent; Complete Time: 16:38 kb 05/31 16:05 Order name: NPO; Complete Time: 16:38 kb 05/31 16:05 Order name: O2 Per Protocol; Complete Time: 16:38 kb 05/31 16:05 Order name: O2 Sat Monitoring; Complete Time: 16:38 kb 05/31 16:05 Order name: Urine Dipstick-Ancillary (obtain specimen); Complete Time: 18:03 kb EC:30 Rate is 72 beats/min. Rhythm is regular. QRS [place] is Normal. CA interval is normal at kb 122 msec. QRS interval is normal at 92 msec. QT interval is normal at 382 msec. Administered Medications: 16:38 Drug: Tylenol 1000 mg Route: PO; ld1 16:38 Follow up: Response: No adverse reaction ld1 18:04 Drug: Ketorolac 30 mg Route: IVP; Site: right antecubital; iw 18:30 Follow up: Response: No adverse reaction iw 18:04 Drug: NS 0.9% 1000 ml Route: IV; Rate: 1000 ml; Site: right antecubital; iw 19:00 Follow up: IV Status: Completed infusion iw 18:07 Drug: Meclizine 25 mg Route: PO; iw 18:25 Follow up: Response: No adverse reaction iw Disposition: 06/01 08:41 Co-signature as Attending Physician, Leeroy Moralez MD I agree with the assessment and katty plan of care. Disposition Summary: 05/31/21 18:05 Discharge Ordered Location: Home kb Condition: Stable kb Diagnosis - syncope kb - Dizziness and giddiness kb Followup: kb - With: Emergency Department - When: As needed - Reason: Worsening of condition Followup: kb - With: Private Physician - When: 2 - 3 days - Reason: Recheck today's complaints, Continuance of care, Re-evaluation by your physician Discharge Instructions: - Discharge Summary Sheet kb - Syncope, [id number] kb - Dizziness, [id number] kb Forms: - Medication Reconciliation Form kb - Thank You Letter kb - Antibiotic Education kb - Prescription Opioid Use kb - Work release form Prescriptions: - Meclizine 25 mg Oral Tablet - take 1 tablet by ORAL route every 8 hours As needed; 30 tablet; Refills: 0, kb Product Selection Permitted Signatures: Dispatcher [employer] EDFL Bianka Vu, OFFICE SYSTEMS TECHNOLOGY INSTRUCTOR-C OFFICE SYSTEMS TECHNOLOGY INSTRUCTOR-Ckb Leeroy Moralez MD MD cha Williams, Irene, RN JAELYN Annabella Bell RN RN Cheri Wheeler RN RN ld1 Corrections: (The following items were deleted from the chart) 05/31 14:38 14:37 PMHx: Staff infections; [facility]
[2021-05-31 18:53] LABS: Urine Specific Gravity/Preg >1.030 (1.005-1.030)
[2021-05-31 19:16] VITALS: TEMP 97.3
[2021-05-31 19:18] VITALS: BP 119/86; O2SAT 98
--- NOTE | 2021-06-01 07:07 | EKG ---
Test Date: 2021-05-31 Test Time: 16:24:42 C S S Representative: DIXON MEASUREMENT RESULTS: Intervals: Rate: 72 NC: 122 QRSD: 92 QT: 382 QTc: 418 [place]: P: 46 NC: 122 QRS: 6 T: 35 INTERPRETIVE STATEMENTS: Normal sinus rhythm Normal ECG No previous ECG available for comparison Electronically Signed On 06-01-21 07:04:40 CHUCKING MACHINE SET UP OPERATOR by Tex Gross
== END 2021-05-31 19:09 | disposition home or self-care (01) ==
LOC: ER 13:47
DX: R55 Syncope and collapse (principal); R42 Dizziness and giddiness
CPT/HCPCS: 96361; 93005; 85025; 80048; 36415; 83735; 82550; 81025; 85610; 80076; 85730; 81003; 84484; 82553; 83690; 70450; 96374; 99284; J7030